=== PATIENT | male | born 1950 | race Caucasian/White ===

== ENCOUNTER 2018-05-09 08:20 | Day surgery (SDC) | payer OTHER ==
--- OUTSIDE RECORDS SUMMARY | 2018-05-09 08:25 | XMS REPORT | Clinical Summary ---
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 Pulse 89 04/30/2018 3:20 PM FUSING MACHINE OPERATOR Temperature - - Respiratory Rate - - Oxygen Saturation - - Inhaled Oxygen Concentration - - Weight 79.4 kg (175 lb) 04/30/2018 3:20 PM FUSING MACHINE OPERATOR Height 175.3 cm (5' 9") 04/30/2018 3:20 PM FUSING MACHINE OPERATOR Body Mass Index 25.84 04/30/2018 3:20 PM FUSING MACHINE OPERATOR Plan of Treatment Health Maintenance Due Date Last Done Comments COLON CANCER SCREENING 07/07/2001 SHINGLES VACCINES (#1) 07/07/2001 65+ PNEUMOCOCCAL VACCINE (1 of 2 - PCV13) 07/07/2016 PNEUMOCOCCAL POLYSACCHARIDE VACCINE AGE 65 AND OVER 07/07/2016 INFLUENZA VACCINE 10/04/2017 Results Not on fileafter 05/08/2017 Insurance Payer Benefit Plan / Group Subscriber ID Type Phone Address MEDICARE MEDICARE PART A AND B xxxxxxxxxxx Medicare [place], [place] Advance Directives Patient has advance care planning documents on file. For more information, please contact:Froilan W[address]ins[address] [place] [address]
[2018-05-09] MEDS ORDERED: CEFAZOLIN/SWI 1gm 1 GM/10 ML SYR ONE (08:45)
[2018-05-09] MEDS ORDERED: Ringers Lactate 1,000 ML IV ONE (08:45)
[2018-05-09 09:00] LABS: Absolute Lymphocytes (CBC) 1.1 K/uL (0.7-4.9); Absolute Monocytes 1.4 K/uL (0.1-1.3); Absolute Neutrophil 7.2 K/uL (1.8-8.0); Basophils % 0.4 % (0-1.3); Eosinophils % 3.5 % (0-4.4); Hematocrit 30.8 % (39.6-49.0); Lymphocytes % 10.9 % (15.3-44.8); MPV 7.2 fL (7.6-11.3); Monocytes % 13.9 % (3.3-12.3); RBC Red Blood Cell Count 3.68 M/uL (4.33-5.43)
[2018-05-09] MEDS ORDERED: NS 0.9% VIAL 10 ML ONE (10:04)
[2018-05-09] MEDS ORDERED: HEPARIN 5000 UNIT/ML 1 ML VIAL ONE (10:05)
[2018-05-09] MEDS ORDERED: LIDOCAINE 1% MPF 30 ML VIAL ONE (10:05)
[2018-05-09] MEDS ORDERED: NA CHLORIDE 0.9% 100 ML IV ONE (10:05)
[2018-05-09] MEDS ORDERED: PROPOFOL 200 MG/20 ML VIAL IV ONE (10:09)
[2018-05-09] MEDS ORDERED: MIDAZOLAM HCL 2 MG/2 ML INJ ONE (10:09)
[2018-05-09] MEDS ORDERED: FENTANYL CITR 100 MCG/2 ML ONE (10:09)
[2018-05-09] MEDS ORDERED: LIDOCAINE 2% MPF 5 ML VIAL ONE (10:09)
--- NOTE | 2018-05-09 11:44 | RAD REPORT ---
EXAM DESCRIPTION: RAD - Chest Single View - 05/09/2018 11:36 am CLINICAL HISTORY: s/p port a cath Chest pain. COMPARISON: Chest Pa And Lat (2 Views) dated 04/27/2018 FINDINGS: Portable technique limits examination quality. Right-sided venous catheter its tip in the SVC. No pneumothorax is present. Elevated right hemidiaphr agm is present, unchanged. The heart is mildly enlarged.
--- NOTE | 2018-05-09 13:59 | DS ---
Date of Discharge: 05/09/2018 Disposition: Home. Condition: Stable. Discharge Instructions: Resume home medications and diet. Activity as tolerated. No heavy lifting. Remove outer dressing in 2 days. Shower. Keep wound clean and dry. Keep Steri-Strips on at all t imes. Follow up in my office in 2 weeks, call for appointment. [facility] up [facility]. Tylenol No . 3 one tablet p.o. q.4 p.r.n. pain. CASSIDY/ANKIT Voice ID: [id number] Report ID: [id number]
--- NOTE | 2018-05-09 13:59 | OP ---
Date of Procedure: 05/09/2018 Surgeon: Stephen Bone MD Preoperative Diagnosis: Colon cancer. Postoperative Diagnosis: Colon cancer. Procedures: Placement of right internal jugular Port-A-Cath and interpretation of intraoperative flu oroscopy. Estimated Blood Loss: Minimal. Specimen: None. Findings: Normal anatomy. Anesthesia: General. Complications: None. Disposition: The patient tolerated the procedure in stable condition and taken to Recovery in good g eneral condition. Description Of Procedure: The patient was brought to the OR and placed in supine position. General anesthesia was begun. The patient was prepped and draped in usual sterile fashion. Lidocaine 1% inf iltrated locally. An 18-gauge needle was used to access the right IJ vein. Guidewire was passed. P osition was confirmed with fluoroscopy. Counterincision of 3 cm in length made, pocket created. Godfrey neling device was used to tunnel the catheter between the 2 wounds and then Seldinger technique was u sed, tip of the catheter placed in the SVC under fluoroscopy. Then, the catheter was cut to appropri ate size, attached to the Port-A-Cath device. Port-A-Cath device was attached to the subcutaneous ti ssue with 3-0 Vicryl, 3-0 chromic used to reapproximate subcutaneous tissue and close the skin. Cath eter flushed with heparin and packed with heparin with good blood flow. Sterile dressing was applied . The patient was awakened and taken to Recovery in good general condition. Chest x-ray has been ordered. If okay, the patient will be disc harged to home. CASSIDY/EMREL Voice ID: [id number] Report ID: [id number]
--- NOTE | 2018-05-09 14:50 | RAD REPORT ---
EXAM DESCRIPTION: RAD - Fluoroscopy <1 Hour - 05/09/2018 2:43 pm CLINICAL HISTORY: Venous catheter insertion. PORT-A-CATH PLACEMENT COMPARISON: No comparisons FINDINGS: Fluoroscopy time 0.4 minutes.
== END 2018-05-09 12:39 | disposition home or self-care (01) ==
LOC: OR 08:20
PROVIDERS: ATTEND Surgery
PROC: 02HV33Z Insertion of Infusion Device into Superior Vena Cava, Percutaneous Approach (ICD-10-PCS; 2018-05-09)
PROC: 0JH63XZ Insertion of Tunneled Vascular Access Device into Chest Subcutaneous Tissue and Fascia, Percutaneous Approach (ICD-10-PCS; principal; 2018-05-09 10:30)
DX: C18.9 Malignant neoplasm of colon, unspecified (principal); I10 Essential (primary) hypertension
CPT/HCPCS: 85025; 36415; 71045; 36561; J2704; J1644 ×2; J2250; J3010; J0690; C1788; 76000

== ENCOUNTER 2019-06-12 | Emergency (ER) | payer OTHER | END 2019-06-13 02:18 | disposition short-term general hospital (02) | PROC: 30233N1 Transfusion of Nonautologous Red Blood Cells into Peripheral Vein, Percutaneous Approach (ICD-10-PCS; principal; 2019-06-13) | CPT/HCPCS: 96365; 93005; 85025; 80048; 36415; 86900; 86850; 85610; 86901; 80076; 85730; 83690; 71260; 74177; 36430 ×2; 96375; 99285; 96366; Q9967; C9113; P9016 ×2; J7030; J7040; J2405 ==

== ENCOUNTER 2019-07-12 09:45 | Day surgery (SDC) | payer OTHER ==
--- OUTSIDE RECORDS SUMMARY | 2019-07-12 10:31 | XMS REPORT | Clinical Summary ---
:1950 Author Organization [facility] Address [address] [place] [address] Care Team Providers Name Role Phone Julian Payne MD Primary Care Provider Allergies Not on File Medications No known medications Active Problems No known active problems Social History Tobacco Use Types Packs/Day Years Used Date Never Assessed Sex Assigned at Date Recorded Not on file Job Start Date Occupation Industry Not on file Not on file Not on file Travel History Travel Start Travel End No recent travel history available. Last Filed Vital Signs Not on file Plan of Treatment Health Maintenance Due Date Last Done Comments COLONOSCOPY SCREENING 07/07/2001 SHINGLES VACCINES (#1) 07/07/2001 65+ PNEUMOCOCCAL VACCINE (1 of 2 - PCV13) 07/07/2016 INFLUENZA VACCINE 10/05/2019 Results Not on fileafter 07/11/2018 Insurance Payer Benefit Plan / Subscriber ID Effective Dates Phone Addre ss Type Group MEDICARE MEDICARE PART A xxxxxxxxxxx 2018-Present [place], [place] Medicare AND B Advance Directives For more information, please contact: [phone] Type Date Recorded Patient Disease Education Specialist Explanati on Advance Directives, Living Will and Medical Power of Software Test Developer
--- OUTSIDE RECORDS SUMMARY | 2019-07-12 10:32 | XMS REPORT | Clinical Summary ---
:1950 Author Organization [facility] Address [address] [place] [address] Care Team Providers Name Role Phone Unavailable Primary Care Provider Unavailable Allergies No Known Allergies Medications Medication Sig Dispensed Refills Start Date End Date Status acetaminophen-codeine Take 1 tablet 0 Active (TYLENOL #3) 300-30 mg by mouth every per tablet 4 (four) hours as needed for Pain. spironolactone Take 50 mg by 0 A ctive (ALDACTONE) 50 MG mouth 2 (two) tablet times daily. pantoprazole (PROTONIX) Take 1 tablet 180 tablet 0 06/15/2019 09/13/2019 Active 40 MG tablet (40 mg total) by mouth 2 (two) times daily for 90 days. Active Problems Problem Noted Date Metastatic colon cancer to liver 06/15/2019 Duodenal ulcer 06/13/2019 Encounters Date Type Specialty Care Team Description 06/14/2019 Anesthesia Event Gastroenterology Kim Schmitz CRNA 06/14/2019 Surgery Gastroenterology Negin Nguyen UPPER ENDO MICAH Kulkarni MD 06/14/2019 Travel 06/13/2019 [facility] Cardiology Rubio, Duodenal ulcer (Primary Dx); - Encounter MD Vilma Gastrointestinal hemorrhage associated w ith peptic ulcer; 06/15/2019 Tim Perez In, History of col on cancer; Malnutrition, unspecified type (HCC); Julito, Acute blood los s anemia Marily Petty MD 06/13/2019 Orders Only General Internal Medicine 06/13/2019 Travel 06/12/2019 Telephone Gastroenterology Negin Nguyen GI Americo Kulkarni MD after 07/11/2018 Social History Tobacco Use Types Packs/Day Years Used Date Never Smoker Smokeless Tobacco: Never Used Alcohol Use Drinks/Week oz/Week Comments Yes 2 Cans of beer 1.2 2 months ago Alcohol Habits Answer Date Recorded How often do you have a drink containing alcohol? Never 06/13/2019 How many drinks containing alcohol do you have on a typical Not asked day when you are drinking? How often do you have six or more drinks on one occasion? No t asked Sex Assigned at Date Recorded Not on file Job Start Date Occupation Industry Not on file Not on file Not on file Travel History Travel Start Travel End No recent travel history available. Last Filed Vital Signs Vital Sign Reading Time Taken Blood Pressure 115/59 06/15/2019 7:24 PM CDT Pulse 71 06/15/2019 7:24 PM CDT Temperature 36.7 C (98.1 F) 06/15/2019 7:24 PM CDT Respiratory Rate 18 06/15/2019 7:24 PM CDT Oxygen Saturation 98% 06/15/2019 7:24 PM CDT Inhaled Oxygen Concentration - - Weight 63.9 kg (140 lb 14.4 oz) 06/14/2019 7:3 6 AM CDT Height 177.8 cm (5' 10") 06/13/2019 3:30 AM CDT Body Mass Index 20.22 06/14/2019 7:36 AM CDT Plan of Treatment Not on file Procedures Procedure Name Priority Date/Time Associated Diagnosis Comme nts REPORT OF PROCEDURE 06/20/2019 8:20 - ENDOSCOPY SCAN AM CDT RHYTHM STRIP - SCAN 06/20/2019 8:20 AM CDT TRANSFUSION SERVICE 06/17/2019 5:50 REPORT - SCAN PM CDT PREPARE Routine 06/16/2019 11:54 Results for this LEUKO-REDUCED RBC PM CDT procedure are in the results section. TRANSFUSION SERVICE 06/16/2019 5:50 REPORT - SCAN PM CDT HEMOGLOBIN AND Timed 06/15/2019 4:04 Results f or this HEMATOCRIT PM CDT procedure are i n the results section. BASIC METABOLIC Routine 06/15/2019 4:04 Results for this PANEL (7) PM CDT procedure are i n the results section. TRANSFUSE Routine 06/15/2019 3:59 LEUKO-REDUCED RED PM CDT BLOOD CELLS POCT-GLUCOSE METER Routine 06/15/2019 12:40 Resul ts for this PM CDT procedure are i n the results section. (CELLAVISION MANUAL Routine 06/15/2019 4:31 Resu lts for this DIFF) AM CDT procedure are i n the results section. CBC W/PLT COUNT & Routine 06/15/2019 4:31 Result s for this AUTO DIFFERENTIAL AM CDT procedure are in the results section. BASIC METABOLIC Routine 06/15/2019 4:31 Results for this PANEL (7) AM CDT procedure are i n the results section. MAGNESIUM Routine 06/15/2019 4:31 Results for this AM CDT procedure are i n the results section. CBC W/PLT COUNT & Routine 06/15/2019 4:31 Result s for this AUTO DIFFERENTIAL AM CDT procedure are in the results section. POCT-GLUCOSE METER Routine 06/15/2019 2:03 Resul ts for this AM CDT procedure are i n the results section. TRANSFUSION SERVICE 06/14/2019 5:50 REPORT - SCAN PM CDT POCT-GLUCOSE METER Routine 06/14/2019 5:24 Resul ts for this PM CDT procedure are i n the results section. BASIC METABOLIC Routine 06/14/2019 4:38 Results for this PANEL (7) PM CDT procedure are i n the results section. OSMOLALITY, URINE Routine 06/14/2019 12:45 Result s for this PM CDT procedure are i n the results section. SODIUM, RANDOM URINE Routine 06/14/2019 12:45 Res ults for this PM CDT procedure are i n the results section. POCT-GLUCOSE METER Routine 06/14/2019 12:41 Resul ts for this PM CDT procedure are i n the results section. OSMOLALITY, SERUM Routine 06/14/2019 11:56 Result s for this AM CDT procedure are i n the results section. REPORT OF PROCEDURE 06/14/2019 11:01 - ENDOSCOPY URL AM CDT UPPER ENDOSCOPY 06/14/2019 9:30 Gastrointestinal AM CDT hemorrhage, unspecified gastrointestinal hemorrhage type POCT-GLUCOSE METER Routine 06/14/2019 6:17 Resul ts for this AM CDT procedure are i n the results section. (CELLAVISION MANUAL Routine 06/14/2019 4:37 Resu lts for this DIFF) AM CDT procedure are i n the results section. CBC W/PLT COUNT & Routine 06/14/2019 4:37 Result s for this AUTO DIFFERENTIAL AM CDT procedure are in the results section. PROTHROMBIN TIME/INR Routine 06/14/2019 4:37 Res ults for this AM CDT procedure are i n the results section. MAGNESIUM Routine 06/14/2019 4:37 Results for this AM CDT procedure are i n the results section. HEPATIC FUNCTION Routine 06/14/2019 4:37 Results for this PANEL AM CDT procedure are i n the results section. CBC W/PLT COUNT & Routine 06/14/2019 4:37 Result s for this AUTO DIFFERENTIAL AM CDT procedure are in the results section. BASIC METABOLIC Routine 06/14/2019 4:37 Results for this PANEL (7) AM CDT procedure are i n the results section. POCT-GLUCOSE METER Routine 06/13/2019 11:25 Resul ts for this PM CDT procedure are i n the results section. XR CHEST 1 VIEW Routine 06/13/2019 2:43 Results for this PORTABLE/BEDSIDE PM CDT procedure a re in the results section. ABORH, MANUAL STAT 06/13/2019 11:45 Results fo r this AM CDT procedure are i n the results section. BASIC METABOLIC Timed 06/13/2019 11:45 Results for this PANEL (7) AM CDT procedure are i n the results section. CBC (HEMOGRAM ONLY) Timed 06/13/2019 11:45 Resu lts for this AM CDT procedure are i n the results section. ECG 12-LEAD Routine 06/13/2019 10:57 AM CDT Procedure Note - Interface, External Ris In - 06/13/2019 10:59 AM CDT Ventricular Rate 95 BPM Atrial Rate 95 BPM P-R Interval 152 ms QRS Duration 84 ms Q-T Interval 340 ms QTC Calculation(Bazett) 427 ms P [place] 49 degrees R [place] 39 degrees T [place] 63 degrees Normal sinus rhythm Septal infarct , age undeter mined Abnormal ECG No previous ECGs available ECG 12-LEAD Routine 06/13/2019 10:57 AM CDT Resu lts for this procedure are i n the results section . US DOPPLER Routine 06/13/2019 10:25 AM CDT Resu lts for this procedure are i n the results section . US ABDOMEN LIMITED Routine 06/13/2019 10:25 AM CDT Results for this procedure are i n the results section . URINALYSIS WITH MICROSCOPIC Routine 06/13/2019 9:01 AM CDT Results for this IF INDICATED procedure are i n the results section . BLOOD CULTURE Routine 06/13/2019 8:47 AM CDT Res ults for this procedure are i n the results section . BLOOD CULTURE Routine 06/13/2019 8:47 AM CDT Res ults for this procedure are i n the results section . (MANUAL DIFFERENTIAL) Routine 06/13/2019 6:04 AM CDT Results for this procedure are i n the results section . CBC W/PLT COUNT & AUTO Routine 06/13/2019 6:04 AM CDT Results for this DIFFERENTIAL procedure are i n the results section . TYPE AND SCREEN, AUTOMATED Routine 06/13/2019 6:04 AM CDT Results for this procedure are i n the results section . BASIC METABOLIC PANEL (7) Add-On 06/13/2019 6:04 AM CDT Results for this procedure are i n the results section . CBC W/PLT COUNT & AUTO Routine 06/13/2019 6:04 AM CDT Results for this DIFFERENTIAL procedure are i n the results section . HEPATIC FUNCTION PANEL Routine 06/13/2019 6:04 AM CDT Results for this procedure are i n the results section . POCT-GLUCOSE METER Routine 06/13/2019 6:00 AM CDT Results for this procedure are i n the results section . POCT-GLUCOSE METER Routine 06/13/2019 4:38 AM CDT Results for this procedure are i n the results section . after 07/11/2018 Results EKG-SCANNED (06/20/2019 8:20 AM CDT) Narrative Performed At This result has an attachment that is no t available. RHYTHM STRIP - SCAN (06/20/2019 8:20 AM CDT) Narrative Performed At This result has an attachment that is no t available. TRANSFUSION SERVICE REPORT - SCAN (06/17/2019 5:50 PM CDT)Only the most recent of3 resultswithin the time period is included. Narrative Performed At This result has an attachment that is no t available. Prepare Leuko-Red RBC (06/16/2019 11:54 PM CDT) CROSSMATCH COMPATIBLE [place] Unit ABO O Pos [place] UNIT NUMBER [id number] [place] Status TX_TIMEINCHART [facility] Blood Bank Product RED BLOOD CELLS [place] PRODUCT CODE [id number] [place] Specimen Other Performing Organization Address City/State/Zipcode Phone Number [place] Hemoglobin and hematocrit (06/15/2019 4:04 PM CDT) Hemoglobin 8.7 (L) 13.7 - 17.5 GM/DL [facility] Hematocrit 25.9 (L) 40.1 - 51.0 % [facility] Specimen Blood Narrative Performed At Tax Services Intern ID - [id number] [facility] Performing Organization Address City/[facility]/Zipcode Phone Number [facility] [address] [place] [address] CENTER Basic metabolic panel (06/15/2019 4:04 PM CDT)Only the most recent of6 results within the time period is included. Sodium 132 (L) 136 - 145 meq/L [facility] Potassium 4.4 3.5 - 5.1 meq/L [facility] Chloride 107 98 - 107 meq/L [facility] CO2 21 (L) 22 - 29 meq/L [facility] BUN 34 (H) 7 - 21 mg/dL [facility] Creatinine 0.82 0.57 - 1.25 mg/dL [facility] Glucose 117 (H) 70 - 105 mg/dL [facility] Calcium 8.5 8.4 - 10.2 mg/dL [facility] EGFR 94Comment: ESTIMATED GFR IS mL/min/1.73 sq m [facility] NOT ACCURATE CREATININE DE DICAL CENTER CLEARANCE IN PREDICTING GLOMERULAR FILTRATION RATE. ESTIMATED GFR IS NOT APPLICABLE FOR DIALYSIS PATIENTS. Specimen Blood Narrative Performed At Tax Services Intern ID - DB [facility] Performing Organization Address City/[facility]/Zipcode Phone Number [facility] [address] [place] [address] CENTER Transfuse Leuko-Red RBC (06/15/2019 3:59 PM CDT)Only the most recent of2 resultswithin the time period is included.POC-Glucose meter (06/15/2019 12:40 PM CDT)Only the most recent of8 resultswithin the time period is included. POC-Glucose Meter 106Comment: : TESTED AT 70 - 110 mg/dL [facility] [address] [facility] [place], [address]: [employer] Intern/Neon Sign Erector ID = [id number] for [place] Specimen Blood Performing Organization Address City/State/Zipcode Phone Number [facility] [address] [place], [place] [phone] CENTER Manual Differential (06/15/2019 4:31 AM CDT)Only the most recent of2 results within the time period is included. % Neutros 91Comment: This is an % [facility] appended report. These [facility] results have been appended to a previously final verified report. % Lymphs 2Comment: This is an % [facility] appended report. These [facility] results have been appended to a previously final verified report. % Monos 7Comment: This is an % [facility] appended report. These [facility] results have been appended to a previously final verified report. # Neutros 14.01 (H)Comment: This is 1.78 - 5.38 K/ul [facility] an appended report. [facility] These results have been appended to a previously final verified report. # Lymphs 0.31 (L)Comment: This is 1.32 - 3.57 K/ul [facility] an appended report. [facility] These results have been appended to a previously final verified report. # Monos 1.08 (H)Comment: This is 0.30 - 0.82 K/uL [facility] an appended report. [facility] These results have been appended to a previously final verified report. Total Counted 100Comment: This is an [facility] appended report. These [facility] results have been appended to a previously final verified report. RBC Morphology Normal [facility] MEDICAL [facility] ER WBC Morphology Normal [facility] ER Platelet Morphology Normal [facility] ER Polychromasia 1+ fewComment: This is an [facility] appended report. These [facility] results have been appended to a previously final verified report. Anisocytosis 2+ moderateComment: This [facility] is an appended report. [facility] These results have been appended to a previously final verified report. Macrocytes 2+ moderateComment: This [facility] is an appended report. [facility] These results have been appended to a previously final verified report. Artifact PresentComment: This is [facility] an appended report. [facility] These results have been appended to a previously final verified report. Platelet Conc AdequateComment: This is [facility] an appended report. [facility] These results have been appended to a previously final verified report. Specimen Blood Narrative Performed At [employer] Intern ID - Enid Overholt [facility] User comments: Slide comments: Performing Organization Address City/State/Zipcode Phone Number [facility] [address] [place] [address] CENTER CBC with platelet count + automated diff (06/15/2019 4:31 AM CDT)Only the most recent of3 resultswithin the time period is included. WBC 15.4 (H) 3.5 - 10.5 K/L [facility] RBC 2.17 (L) 4.63 - 6.08 M/L [facility] Hemoglobin 6.7 (L) 13.7 - 17.5 GM/DL [facility] Hematocrit 20.6 (L) 40.1 - 51.0 % [facility] MCV 94.9 (H) 79.0 - 92.2 fL [facility] MCH 30.9 25.7 - 32.2 pg [facility] MCHC 32.5 32.3 - 36.5 GM/DL [facility] RDW 16.9 (H) 11.6 - 14.4 % [facility] Platelets 188 150 - 450 K/CU MM [facility] MPV 9.4 9.4 - 12.4 fL [facility] nRBC 0 0 - 0 /100 WBC [facility] Specimen Blood Performing Organization Address [facility] Phone Number [address] [address] CENTER Magnesium (06/15/2019 4:31 AM CDT)Only the most recent of2 resultswithin the time period is included. Magnesium 2.2 1.6 - 2.6 mg/dL [facility] Specimen Blood Narrative Performed At Tax Services Intern ID - ELENO Parks [facility] Performing Organization Address [facility] Phone Number [address] [address] CENTER Sodium, random urine (06/14/2019 12:45 PM CDT) Sodium Urine <20 meq/L [facility] Specimen Urine Narrative Performed At Reference Range: No Normals [facility] Tax Services Intern ID - [email or web address] Performing Organization Address [facility] Phone Number [address] [address] CENTER Osmolality, urine (06/14/2019 12:45 PM CDT) Osmolality, Ur 660 40-1,400 mOsm/kg [facility] Specimen Urine Performing Organization Address [facility] Phone Number [address] [address] CENTER Osmolality, serum (06/14/2019 11:56 AM CDT) Osmolality Serum 300 (H) 275 - 295 mOsm/kg [facility] Specimen Blood Performing Organization Address City/[facility]/Zipcode Phone Number [facility] [address] [place] [address] [place] REPORT OF PROCEDURE - ENDOSCOPY URL (06/14/2019 11:01 AM CDT) Narrative Performed At This result has an attachment that is no t available. Prothrombin time/INR (06/14/2019 4:37 AM CDT) Protime 18.4 (H) 11.9 - 14.2 seconds [facility] INR 1.6 <=5.9 [facility] Specimen Blood Narrative Performed At Effective 08/01/2018: PT Reference Range [facility] Change New: 11.9-14.2Previous: 11.7-14.7 RECOMMENDED COUMADIN/WARFARIN INR THERAPY RANGES STANDARD DOSE: 2.0-3.0Includes: PROPHYLAXIS for venous thrombosis, systemic embolization; TREATMENT for venous thrombosis and/or pulmonary embolus. HIGH RISK: Target INR is 2.5-3.5 for patients wiht mechanical heart valves. Performing Organization Address [facility]/Zipcode Phone Number [facility] [address] [place] [address] [place] Hepatic function panel (06/14/2019 4:37 AM CDT)Only the most recent of2 results within the time period is included. Protein, Total 7.0 6.0 - 8.3 gm/dL [facility] Albumin 2.1 (L) 3.5 - 5.0 g/dL [facility] Total Bilirubin 1.8 (H) 0.2 - 1.2 mg/dL [facility] Bilirubin, Direct 1.2 (H) 0.1 - 0.5 mg/dL [facility] Alkaline Phosphatase 331 (H) 40 - 150 U/L [facility] AST 258 (H) 5 - 34 U/L [facility] ALT 159 (H) 6 - 55 U/L [facility] Specimen Blood Narrative Performed At Tax Services Intern ID - CLARITZA Bobo [facility] Performing Organization Address City/[facility]/Zipcode Phone Number [address] [address] CENTER XR chest 1 view portable / bedside (06/13/2019 2:43 PM CDT) Specimen Narrative Performed At FINAL REPORT GE RIS Chest, one view History: Leukocytosis Comparison: none Findings: Clear lungs.Normal size heart.No pleural effusion or pneumothorax.A right-sided Port-A-Ca th terminates in the superior vena cava. Impression: No acute findings in the chest Signed: Uriel Barrera MD Report Verified Date/Time:06/13/2019 15:33:29 Reading Location: [facility] C013X Ortho Con sult Reading Room Procedure Note Interface, External Ris In - 06/13/2019 3:35 PM CDT FINAL REPORT Chest, one view History: Leukocytosis Comparison: none Findings: Clear lungs. Normal size heart. No ple ural effusion or pneumothorax. A right-sided Port-A-Cath terminates in the superior vena cava. Impression: No acute findings in the chest Signed: Uriel Barrera MD Report Verified Date/Time: 06/13/2019 1 5:33:29 Reading Location: [facility] C013X Ortho Con sult Reading Room Performing Organization Address City/[facility]/Zipcode Phone Number GE RIS ABORH, manual (06/13/2019 11:45 AM CDT) ABO Grouping O [facility] Rh Factor POS [facility] Specimen Blood Performing Organization Address City/[facility]/Zipcode Phone Number [address] [address] CBC (Hemogram only) (06/13/2019 11:45 AM CDT) WBC 24.0 (H) 3.5 - 10.5 K/L [facility] RBC 2.72 (L) 4.63 - 6.08 M/L [facility] Hemoglobin 8.3 (L) 13.7 - 17.5 GM/DL [facility] Hematocrit 25.9 (L) 40.1 - 51.0 % [facility] MCV 95.2 (H) 79.0 - 92.2 fL [facility] MCH 30.5 25.7 - 32.2 pg [facility] MCHC 32.0 (L) 32.3 - 36.5 GM/DL [facility] RDW 18.1 (H) 11.6 - 14.4 % [facility] Platelets 247 150 - 450 K/CU MM [facility] MPV 9.3 (L) 9.4 - 12.4 fL [facility] nRBC 0 0 - 0 /100 WBC [facility] Specimen Blood Performing Organization Address City/State/Zipcode Phone Number [facility] [address] [place] [address] CENTER ECG 12 lead (06/13/2019 10:57 AM CDT) Specimen Narrative Performed At Ventricular Rate 95 BPM GE MUSE Atrial Rate 95 BPM P-R Interval 152 ms QRS Duration 84 ms Q-T Interval 340 ms QTC Calculation(Bazett) 427 ms P [place] 49 degrees R [place] 39 degrees T [place] 63 degrees Normal sinus rhythm probable inferoposterior infarct Abnormal ECG No previous ECGs available Confirmed by MD Wynne Roberto ([id number]) on 2019 1:54:37 PM Procedure Note Interface, External Ris In - 06/13/2019 1:54 PM CDT Ventricular Rate 95 BPM Atrial Rate 95 BPM P-R Interval 152 ms QRS Duration 84 ms Q-T Interval 340 ms QTC Calculation(Bazett) 427 ms P [place] 49 degrees R [place] 39 degrees T [place] 63 degrees Normal sinus rhythm probable inferoposterior infarct Abnormal ECG No previous ECGs available Confirmed by MD Sherrell, Rory ([id number]) on 06/13/2019 1:54:37 PM Performing Organization Address City/State/Zipcode Phone Number [employer] US abdomen limited (06/13/2019 10:25 AM CDT) Specimen Narrative Performed At FINAL REPORT [employer] TECHNIQUE: Grayscale ultrasound of the a bdomen with color Doppler and spectral Doppler ultrasound of the sera l/hepatic vasculature. INDICATION: transaminitis. COMPARISON: None. FINDINGS: LIVER: The liver has a nodular contour a nd is near completely replaced by masses. No focal liver lesio ns. HEPATIC VASCULATURE: Portal veins are pa tent with normal waveform and directionality. Flow velocity in the yue n portal vein is within normal limits. The hepatic veins and con fluence are patent. The main portal vein measures 1 cm in diameter. The hepatic arterial resistive indices a re elevated at 0.8. The proper hepatic arterial acceleration valerie e is 0.06 seconds. BILIARY: Gallbladder: No gallstones or sludge. No gallbladder wall thickening, pericholecystic fluid, or distention. Ne gative sonographic Boo sign. Common bile duct measures 0.4 cm, within normal limits. No intrahepatic biliary ductal dilatation. PANCREAS: Incompletely visualized due to overlying bowel gas. The partially visualized pancreatic body is normal. SPLEEN: The spleen is enlarged at 13.1 c m in length. PERITONEUM: No free fluid. RIGHT KIDNEY: Normal in size. No hydrone phrosis. No sonographically evident solid mass lesion. MIDLINE VASCULATURE: The visualized infe rior vena cava is patent. The maximum visualized aortic diameter is 2. 4 cm.Splenic artery and vein are patent. IMPRESSION: 1.The liver is near completely replaced by masses. Consider further evaluation with a MRI of the abdomen wit h and without intravenous contrast, liver mass protocol, [facility]. 2.The elevated hepatic arterial resistiv e indices are likely due to the parenchymal liver disease. 3.Mild splenomegaly. Signed: Barrett Escalona MD Report Verified Date/Time:06/13/2019 10:39:55 Reading Location: [facility] C013Y CT Body R [facility] Room Procedure Note Interface, External Ris In - 06/13/2019 10:42 AM CDT FINAL REPORT TECHNIQUE: Grayscale ultrasound of the a bdomen with color Doppler and spectral Doppler ultrasound of the sera l/hepatic vasculature. INDICATION: transaminitis. COMPARISON: None. FINDINGS: LIVER: The liver has a nodular contour a nd is near completely replaced by masses. No focal liver lesio ns. HEPATIC VASCULATURE: Portal veins are pa tent with normal waveform and directionality. Flow velocity in the yue n portal vein is within normal limits. The hepatic veins and con fluence are patent. The main portal vein measures 1 cm in diameter. The hepatic arterial resistive indices a re elevated at 0.8. The proper hepatic arterial acceleration valerie e is 0.06 seconds. BILIARY: Gallbladder: No gallstones or sludge. No gallbladder wall thickening, pericholecystic fluid, or distention. Ne gative sonographic Boo sign. Common bile duct measures 0.4 cm, within normal limits. No intrahepatic biliary ductal dilatation. PANCREAS: Incompletely visualized due to overlying bowel gas. The partially visualized pancreatic body is normal. SPLEEN: The spleen is enlarged at 13.1 c m in length. PERITONEUM: No free fluid. RIGHT KIDNEY: Normal in size. No hydrone phrosis. No sonographically evident solid mass lesion. MIDLINE VASCULATURE: The visualized infe rior vena cava is patent. The maximum visualized aortic diameter is 2. 4 cm. Splenic artery and vein are patent. IMPRESSION: 1.The liver is near completely replaced by masses. Consider further evaluation with a MRI of the abdomen wit h and without intravenous contrast, liver mass protocol, for furth er evaluation. 2.The elevated hepatic arterial resistiv e indices are likely due to the parenchymal liver disease. 3.Mild splenomegaly. Signed: Barrett Escalona MD Report Verified Date/Time: 06/13/2019 1 0:39:55 Reading Location: [facility] B1 C013Y CT Body R eading Room Performing Organization Address City/State/Zipcode Phone Number [facility] US doppler (06/13/2019 10:25 AM CDT) Specimen Narrative Performed At FINAL REPORT [facility] TECHNIQUE: Grayscale ultrasound of the a bdomen with color Doppler and spectral Doppler ultrasound of the sera l/hepatic vasculature. INDICATION: transaminitis. COMPARISON: None. FINDINGS: LIVER: The liver has a nodular contour a nd is near completely replaced by masses. No focal liver lesio ns. HEPATIC VASCULATURE: Portal veins are pa tent with normal waveform and directionality. Flow velocity in the yue n portal vein is within normal limits. The hepatic veins and con fluence are patent. The main portal vein measures 1 cm in diameter. The hepatic arterial resistive indices a re elevated at 0.8. The proper hepatic arterial acceleration valerie e is 0.06 seconds. BILIARY: Gallbladder: No gallstones or sludge. No gallbladder wall thickening, pericholecystic fluid, or distention. Ne gative sonographic Boo sign. Common bile duct measures 0.4 cm, within normal limits. No intrahepatic biliary ductal dilatation. PANCREAS: Incompletely visualized due to overlying bowel gas. The partially visualized pancreatic body is normal. SPLEEN: The spleen is enlarged at 13.1 c m in length. PERITONEUM: No free fluid. RIGHT KIDNEY: Normal in size. No hydrone phrosis. No sonographically evident solid mass lesion. MIDLINE VASCULATURE: The visualized infe rior vena cava is patent. The maximum visualized aortic diameter is 2. 4 cm.Splenic artery and vein are patent. IMPRESSION: 1.The liver is near completely replaced by masses. Consider further evaluation with a MRI of the abdomen wit h and without intravenous contrast, liver mass protocol, for [facility] evaluation. 2.The elevated hepatic arterial resistiv e indices are likely due to the parenchymal liver disease. 3.Mild splenomegaly. Signed: Barrett Escalona MD Report Verified Date/Time:06/13/2019 10:39:55 Reading Location: [facility] C013Y CT Body R [facility] Procedure Note Interface, External Ris In - 06/13/2019 10:42 AM CDT FINAL REPORT TECHNIQUE: Grayscale ultrasound of the a bdomen with color Doppler and spectral Doppler ultrasound of the sera l/hepatic vasculature. INDICATION: transaminitis. COMPARISON: None. FINDINGS: LIVER: The liver has a nodular contour a nd is near completely replaced by masses. No focal liver lesio ns. HEPATIC VASCULATURE: Portal veins are pa tent with normal waveform and directionality. Flow velocity in the yue n portal vein is within normal limits. The hepatic veins and con fluence are patent. The main portal vein measures 1 cm in diameter. The hepatic arterial resistive indices a re elevated at 0.8. The proper hepatic arterial acceleration valerie e is 0.06 seconds. BILIARY: Gallbladder: No gallstones or sludge. No gallbladder wall thickening, pericholecystic fluid, or distention. Ne gative sonographic Boo sign. Common bile duct measures 0.4 cm, within normal limits. No intrahepatic biliary ductal dilatation. PANCREAS: Incompletely visualized due to overlying bowel gas. The partially visualized pancreatic body is normal. SPLEEN: The spleen is enlarged at 13.1 c m in length. PERITONEUM: No free fluid. RIGHT KIDNEY: Normal in size. No hydrone phrosis. No sonographically evident solid mass lesion. MIDLINE VASCULATURE: The visualized infe rior vena cava is patent. The maximum visualized aortic diameter is 2. 4 cm. Splenic artery and vein are patent. IMPRESSION: 1.The liver is near completely replaced by masses. Consider further evaluation with a MRI of the abdomen wit h and without intravenous contrast, liver mass protocol, for [facility] evaluation. 2.The elevated hepatic arterial resistiv e indices are likely due to the parenchymal liver disease. 3.Mild splenomegaly. Signed: Barrett Escalona MD Report Verified Date/Time: 06/13/2019 1 0:39:55 Reading Location: [facility] C013Y CT Body R [facility] Room Performing Organization Address City/State/Zipcode Phone Number [facility] Urinalysis with Microscopic If Indicated (06/13/2019 9:01 AM CDT) Color, UA Yellow [facility] Clarity, UA Clear [facility] Specific [place], UA 1.024 1.001 - 1.[address] [facility] pH, UA 5.0 5.0 - 8.[address] [facility] Protein[facility] UA Negative Negative [facility] Glucose, UA Negative Negative [facility] Ketones, UA Negative Negative [facility] Bilirubin, UA Negative Negative [facility] Blood, UA Negative Negative [facility] Nitrite, UA Negative Negative [facility] Leukocytes, UA Negative Negative [facility] Urobilinogen, UA 2.0 (H) 0.2 - 1.0 mg/dL [facility] Specimen Source [facility] Specimen Urine Narrative Performed At [employer] Intern ID - [[email or web address]] [facility] [employer] Intern ID - tech [employer] ID - tech Performing Organization Address [facility] Phone Number [address] [address] [place] Blood Culture - Routine (Left Venipuncture) (06/13/2019 8:47 AM CDT)Only the most recent of2 resultswithin the time period is included. Result No growth in 5 days [facility] Specimen Blood Performing Organization Address City/[facility]/Zipcode Phone Number [address] [address] [place] Manual Differential (06/13/2019 6:04 AM CDT) % Neutros (manual) 76 % [facility] % Lymphs (manual) 9 % [facility] % Monos (manual) 12 % [facility] % Eos (manual) 1 % [facility] % Baso (manual) 0 % [facility] % Metamyelo (manual) 1 (H) 0 - 0 % [facility] % Atypical Lymphs 1 (H) 0 - 0 % [facility] # Neutros (manual) 15.73 (H) 1.80 - 8.00 K/L [facility] # Lymphs (manual) 1.86 1.48 - 4.50 K/L [facility] # Monos (manual) 2.48 (H) 0.00 - 1.30 K/L [facility] # Eos (manual) 0.21 0.00 - 0.50 K/L [facility] # Baso (manual) 0.00 0.00 - 0.20 K/L [facility] # Metamyelo (manual) 0.21 (H) 0.00 - 0.00 K/L [facility] # Atypical Lymphs 0.21 (H) 0.00 - 0.00 K/L [facility] Total Counted 100 [facility] WBC Morphology Normal [facility] Platelet Morphology Normal [facility] Anisocytosis 1+ few [facility] Polychromasia 1+ few [facility] Specimen Blood Performing Organization Address City/[facility]/Zipcode Phone Number [facility] [address] [place] [address] CENTER Type and screen, automated (06/13/2019 6:04 AM CDT) ABO/RH AUTOMATED (BEAKER) O POSITIVE [facility] Ab Scrn NEGATIVE [facility] Specimen Blood Performing Organization Address City/State/Zipcode Phone Number [facility] [address] [place] [address] after 07/11/2018 Insurance Payer Benefit Plan / Group Subscriber ID Type Phone A ddress MEDICARE MEDICARE A B xxxxxxxxxxx Medicare Advance Directives For more information, please contact:[facility] [place], [place] [phone] Code Status Date Activated Date Inactivated Comments Full Code 06/13/2019 4:19 AM 06/15/2019 10:37 PM This code status was determined by: Patient
--- OUTSIDE RECORDS SUMMARY | 2019-07-12 10:33 | XMS REPORT ---
:1950 Author Organization [facility] t Address [address] [place] [address] Care Team Providers Name Role Phone KATHIA Unavailable Unavailable Problems This patient has no known problems. Allergies, Adverse Reactions, Alerts This patient has no known allergies or adverse reactions. Medications This patient has no known medications. Results Test Description Test Time Test Comments Text Results Atomic Results Result Comments BLOOD CULTURE 2019-06-18 10:00:00 Test Item Value Reference Range Comments CULTURE (BEAKER) (test code = 1095) No growth in 5 days BLOOD [id number] 10:00:00 Test Item Value Reference Range Comments CULTURE (BEAKER) (test code = 1095) No growth in 5 days BASIC METABOLIC [id number] 16:25:00 Test Item Value Reference Range Comments SODIUM (BEAKER) (test 132 meq/L 136-145 code = 381) POTASSIUM (BEAKER) (test 4.4 meq/L 3.5-5.1 code = 379) CHLORIDE (BEAKER) (test 107 meq/L 98-107 code = 382) CO2 (BEAKER) (test code = 21 meq/L 22-29 355) BLOOD UREA NITROGEN 34 mg/dL 7-21 (BEAKER) (test code = 354) CREATININE (BEAKER) (test 0.82 mg/dL 0.57-1.25 code = 358) GLUCOSE RANDOM (BEAKER) 117 mg/dL 70-105 (test code = 652) CALCIUM (BEAKER) (test 8.5 mg/dL 8.4-10.2 code = 697) EGFR (BEAKER) (test code 94 mL/min/1.73 sq m EST IMATED GFR IS NOT = 1092) ACCURATE CREA TININE CLEARANCE IN PRE DICTING GLOMERULAR FILTR ATION RATE. ESTIMATED GFR IS NOT APPLICABLE F OR DIALYSIS PATIENT S. Material Mover ID - DBHEMOGLOBIN AND [id number] 16:11:00 Test Item Value Reference Range Comments HEMOGLOBIN (BEAKER) (test code = 410) 8.7 GM/DL 13.7-17.5 HEMATOCRIT (BEAKER) (test code = 411) 25.9 % 40.1-51.0 Material Mover ID - 6000POCT-GLUCOSE [id number] 12:51:00 Test Item Value Reference Range Comments POC-GLUCOSE METER (BEAKER) 106 mg/dL 70-110 : [facility] AT [facility] [address] (test code = 1538) [facility], [address]: Material Mover/Technic chin ID = [id number] for JOSSELYN NEIL (CELLAVISION MANUAL DIFF)2019-06-15 07:17:00 Test Item Value Reference Range Comments TOTAL COUNTED (BEAKER) (test code 100 This is an appended = 1351) report. These r esults have been append ed to a previously final verified report. RBC MORPHOLOGY (BEAKER) (test Normal code = 762) WBC MORPHOLOGY (BEAKER) (test Normal code = 487) PLT MORPHOLOGY (BEAKER) (test Normal code = 486) NEUTROPHILS - REL 91 % This is an samantha ended (CELLAVISION)(BEAKER) (test code report. These results = 2816) have been append ed to a previously final verified report. LYMPHOCYTES - REL 2 % This is an samantha ended (CELLAVISION)(BEAKER) (test code report. These results = 2817) have been append ed to a previously final verified report. MONOCYTES - REL 7 % This is an appen ded (CELLAVISION)(BEAKER) (test code report. These results = 2818) have been append ed to a previously final verified report. NEUTROPHILS - ABS 14.01 K/ul 1.78-5.38 This is an samantha ended (CELLAVISION)(BEAKER) (test code report. These results = 2830) have been append ed to a previously final verified report. LYMPHOCYTES - ABS 0.31 K/ul 1.32-3.57 This is an samantha ended (CELLAVISION)(BEAKER) (test code report. These results = 2831) have been append ed to a previously final verified report. MONOCYTES - ABS 1.08 K/uL 0.30-0.82 This is an appen ded (CELLAVISION)(BEAKER) (test code report. These results = 2832) have been append ed to a previously final verified report. POLYCHROMATOPHILLIC RBCS(BEAKER) 1+ few This is an appended (test code = 478) report. These results have been append ed to a previously final verified report. ANISOCYTOSIS (BEAKER) (test code 2+ moderate This is an appended = 961) report. These r esults have been append ed to a previously final verified report. MACROCYTES (BEAKER) (test code = 2+ moderate This is an appended 964) report. These r esults have been append ed to a previously final verified report. ARTIFACT (CELLAVISION)(BEAKER) Present T his is an appended (test code = 3432) report. Thes e results have been append ed to a previously final verified report. PLATELET CONCENTRATION Adequate This is a n appended (CELLAVISION)(BEAKER) (test code report. These results = 3438) have been append ed to a previously final verified report. Material Mover ID - Enid OverholtUser comments: Slide comments:[id number] 05:36:00 Test Item Value Reference Range Comments MAGNESIUM (BEAKER) (test code = 627) 2.2 mg/dL 1.6-2.6 Material Mover ID - ELENO MBASIC METABOLIC [id number] 05:36:00 Test Item Value Reference Range Comments SODIUM (BEAKER) (test 133 meq/L 136-145 code = 381) POTASSIUM (BEAKER) (test 4.7 meq/L 3.5-5.1 code = 379) CHLORIDE (BEAKER) (test 110 meq/L 98-107 code = 382) CO2 (BEAKER) (test code = 19 meq/L 22-29 355) BLOOD UREA NITROGEN 38 mg/dL 7-21 (BEAKER) (test code = 354) CREATININE (BEAKER) (test 0.80 mg/dL 0.57-1.25 code = 358) GLUCOSE RANDOM (BEAKER) 119 mg/dL 70-105 (test code = 652) CALCIUM (BEAKER) (test 8.3 mg/dL 8.4-10.2 code = 697) EGFR (BEAKER) (test code 96 mL/min/1.73 sq m EST IMATED GFR IS NOT = 1092) ACCURATE CREA TININE CLEARANCE IN PRE DICTING GLOMERULAR FILTR ATION RATE. ESTIMATED GFR IS NOT APPLICABLE F OR DIALYSIS PATIENT S. Material Mover ID - ELENO MCBC W/PLT COUNT & AUTO [id number] 05:15:00 Test Item Value Reference Range Comments WHITE BLOOD CELL COUNT (BEAKER) (test code = 15.4 K/ L 3.5 -10.5 775) RED BLOOD CELL COUNT (BEAKER) (test code = 761) 2.17 M/ L 4.63-6.08 HEMOGLOBIN (BEAKER) (test code = 410) 6.7 GM/DL 13.7-17.5 HEMATOCRIT (BEAKER) (test code = 411) 20.6 % 40.1-51.0 MEAN CORPUSCULAR VOLUME (BEAKER) (test code = 94.9 fL 79 .0-92.2 753) MEAN CORPUSCULAR HEMOGLOBIN (BEAKER) (test code 30.9 pg 25.7-32.2 = 751) MEAN CORPUSCULAR HEMOGLOBIN CONC (BEAKER) (test 32.5 GM/DL 32.3-36.5 code = 752) RED CELL DISTRIBUTION WIDTH (BEAKER) (test code 16.9 % 11.6-14.4 = 412) PLATELET COUNT (BEAKER) (test code = 756) 188 K/CU MM 150-45 0 MEAN PLATELET VOLUME (BEAKER) (test code = 754) 9.4 fL 9.4-12.4 NUCLEATED RED BLOOD CELLS (BEAKER) (test code = 0 /100 WBC 0-0 413) POCT-GLUCOSE [id number] 02:16:00 Test Item Value Reference Range Comments POC-GLUCOSE METER (BEAKER) 123 mg/dL 70-110 : [facility] AT [address] (test code = 1538) [facility], [address]: Material Mover/Technic chin ID = [id number] for ADAL LAINEZ POCT-GLUCOSE [id number] 17:36:00 Test Item Value Reference Range Comments POC-GLUCOSE METER (BEAKER) 182 mg/dL 70-110 : [facility] AT [place] [id number] [facility] (test code = 1538) [facility], [address]: Material Mover/Technic chin ID = [id number] for Bertin COOK BASIC METABOLIC [id number] 17:04:00 Test Item Value Reference Range Comments SODIUM (BEAKER) (test 132 meq/L 136-145 code = 381) POTASSIUM (BEAKER) (test 5.4 meq/L 3.5-5.1 code = 379) CHLORIDE (BEAKER) (test 106 meq/L 98-107 code = 382) CO2 (BEAKER) (test code = 18 meq/L 22-29 355) BLOOD UREA NITROGEN 51 mg/dL 7-21 (BEAKER) (test code = 354) CREATININE (BEAKER) (test 1.11 mg/dL 0.57-1.25 code = 358) GLUCOSE RANDOM (BEAKER) 180 mg/dL 70-105 (test code = 652) CALCIUM (BEAKER) (test 8.4 mg/dL 8.4-10.2 code = 697) EGFR (BEAKER) (test code 66 mL/min/1.73 sq m EST IMATED GFR IS NOT = 1092) ACCURATE CREA TININE CLEARANCE IN PRE DICTING GLOMERULAR FILTR ATION RATE. ESTIMATED GFR IS NOT APPLICABLE F OR DIALYSIS PATIENT S. Material Mover ID - DALTONOCT-GLUCOSE [id number] 17:01:00 Test Item Value Reference Range Comments POC-GLUCOSE METER (BEAKER) 130 mg/dL 70-110 : [facility] AT [facility] [address] [facility] (test code = 1538) [facility], [address]: Material Mover/Technic chin ID = [id number] for Bertin COOK OSMOLALITY, [id number] 14:44:00 Test Item Value Reference Range Comments OSMOLALITY URINE (BEAKER) (test code = 614) 660 mOsm/kg 40-1 ,400 SODIUM, RANDOM [id number] 13:56:00 Test Item Value Reference Range Comments SODIUM URINE (BEAKER) (test code = 243) < meq/L Reference Range: No NormalsOperator ID - DANYELLEGOSMOLALITY, [id number] 13:53:00 Test Item Value Reference Range Comments OSMOLALITY, SERUM (BEAKER) (test code = 615) 300 mOsm/kg 275 -295 CBC W/PLT COUNT & AUTO [id number] 09:25:00 Test Item Value Reference Range Comments WHITE BLOOD CELL COUNT (BEAKER) (test code = 22.4 K/ L 3.5 -10.5 775) RED BLOOD CELL COUNT (BEAKER) (test code = 761) 2.50 M/ L 4.63-6.08 HEMOGLOBIN (BEAKER) (test code = 410) 7.8 GM/DL 13.7-17.5 HEMATOCRIT (BEAKER) (test code = 411) 23.4 % 40.1-51.0 MEAN CORPUSCULAR VOLUME (BEAKER) (test code = 93.6 fL 79 .0-92.2 753) MEAN CORPUSCULAR HEMOGLOBIN (BEAKER) (test code 31.2 pg 25.7-32.2 = 751) MEAN CORPUSCULAR HEMOGLOBIN CONC (BEAKER) (test 33.3 GM/DL 32.3-36.5 code = 752) RED CELL DISTRIBUTION WIDTH (BEAKER) (test code 17.3 % 11.6-14.4 = 412) PLATELET COUNT (BEAKER) (test code = 756) 197 K/CU MM 150-45 0 MEAN PLATELET VOLUME (BEAKER) (test code = 754) 9.4 fL 9.4-12.4 NUCLEATED RED BLOOD CELLS (BEAKER) (test code = 0 /100 WBC 0-0 413) (CELLAVISION MANUAL DIFF)2019-06-14 09:25:00 Test Item Value Reference Range Comments NEUTROPHILS - REL (CELLAVISION)(BEAKER) (test 82 % code = 2816) LYMPHOCYTES - REL (CELLAVISION)(BEAKER) (test 1 % code = 2817) MONOCYTES - REL (CELLAVISION)(BEAKER) (test code 14 % = 2818) BANDS - REL (CELLAVISION)(BEAKER) (test code = 3 % 0 -10 3366) NEUTROPHILS - ABS (CELLAVISION)(BEAKER) (test 18.37 K/ul 1. 78-5.38 code = 2830) LYMPHOCYTES - ABS (CELLAVISION)(BEAKER) (test 0.22 K/ul 1. 32-3.57 code = 2831) MONOCYTES - ABS (CELLAVISION)(BEAKER) (test code 3.14 K/uL 0.30-0.82 = 2832) BANDS - ABS (CELLAVISION)(BEAKER) (test code = 0.67 K/uL 0 .00-0.80 2840) TOTAL COUNTED (BEAKER) (test code = 1351) 100 WBC MORPHOLOGY (BEAKER) (test code = 487) Normal GIANT PLATELETS (BEAKER) (test code = 313) Present POLYCHROMATOPHILLIC RBCS(BEAKER) (test code = 2+ moderate 478) HYPOCHROMIA (BEAKER) (test code = 963) 2+ moderate ANISOCYTOSIS (BEAKER) (test code = 961) 1+ few MACROCYTES (BEAKER) (test code = 964) 1+ few POIKILOCYTES (BEAKER) (test code = 966) 2+ moderate ROULEAUX (BEAKER) (test code = 763) 2+ moderate SPHEROCYTES (BEAKER) (test code = 768) 1+ few OVALOCYTES (BEAKER) (test code = 477) 1+ few TEAR DROP CELLS (BEAKER) (test code = 481) 1+ few ARTIFACT (CELLAVISION)(BEAKER) (test code = Present 3432) PLATELET CONCENTRATION (CELLAVISION)(BEAKER) Adequate (test code = 3438) Material Mover ID - Courtney Marshall comments: Slide comments: WBC: SEGMENTED WITH TOXIC GRANULATIONS PRESENTPOCT-GLUCOSE [id number] 06:28:00 Test Item Value Reference Range Comments POC-GLUCOSE METER (BEAKER) 99 mg/dL 70-110 : [facility] 1538[facility], [address]: Material Mover/Technic chin ID = [id number] for NATACHA GONZALEZ PROTHROMBIN [id number] 05:34:00 Test Item Value Reference Range Comments PROTIME (BEAKER) (test code = 759) 18.4 seconds 11.9-14.2 INR (BEAKER) (test code = 370) 1.6 <=5.9 Effective 08/01/2018: PT Reference Range ChangeNew: 11.9-14.2 Previous: 11.7- 14.7RECOMMENDED COUMADIN/WARFARIN INR THERAPY RANGESSTANDARD DOSE: 2.0-3.0 Includes: PROPHYLAXIS for venous thrombosis, systemic embolization; TREATMENT for venous thrombosis and/or pulmonary embolus.HIGH RISK: Target INR is2.5-3.5 for patients wiht mechanical heart valves.[id number] 05:24:00 Test Item Value Reference Range Comments MAGNESIUM (BEAKER) (test code = 627) 1.9 mg/dL 1.6-2.6 Material Mover ID Juancarlos JERRY WBASIC METABOLIC [id number] 05:24:00 Test Item Value Reference Range Comments SODIUM (BEAKER) (test 131 meq/L 136-145 code = 381) POTASSIUM (BEAKER) (test 5.5 meq/L 3.5-5.1 code = 379) CHLORIDE (BEAKER) (test 106 meq/L 98-107 code = 382) CO2 (BEAKER) (test code = 16 meq/L 22-29 355) BLOOD UREA NITROGEN 58 mg/dL 7-21 (BEAKER) (test code = 354) CREATININE (BEAKER) (test 1.04 mg/dL 0.57-1.25 code = 358) GLUCOSE RANDOM (BEAKER) 94 mg/dL 70-105 (test code = 652) CALCIUM (BEAKER) (test 8.4 mg/dL 8.4-10.2 code = 697) EGFR (BEAKER) (test code 71 mL/min/1.73 sq m EST IMATED GFR IS NOT = 1092) ACCURATE CREA TININE CLEARANCE IN PRE DICTING GLOMERULAR FILTR ATION RATE. ESTIMATED GFR IS NOT APPLICABLE F OR DIALYSIS PATIENT S. Material Mover ID Juancarlos JERRY WHEPATIC FUNCTION [id number] 05:24:00 Test Item Value Reference Range Comments TOTAL PROTEIN (BEAKER) (test code = 770) 7.0 gm/dL 6.0-8.3 ALBUMIN (BEAKER) (test code = 1145) 2.1 g/dL 3.5-5.0 BILIRUBIN TOTAL (BEAKER) (test code = 377) 1.8 mg/dL 0.2-1 .2 BILIRUBIN DIRECT (BEAKER) (test code = 706) 1.2 mg/dL 0.1- 0.5 ALKALINE PHOSPHATASE (BEAKER) (test code = 346) 331 U/L 40-150 AST (SGOT) (BEAKER) (test code = 353) 258 U/L 5-34 ALT (SGPT) (BEAKER) (test code = 347) 159 U/L 6-55 Material Mover ID - CLARITZA WPOCT-GLUCOSE [id number] 23:37:00 Test Item Value Reference Range Comments POC-GLUCOSE METER (BEAKER) 112 mg/dL 70-110 : [facility] AT [facility] [address] (test code = 1538) [place], [address]: Material Mover/Technic chin ID = [id number] for NATACHA GONZALEZ, CHEST, 1 VIEW, NON [id number] 15:33:00Reason for exam:- >leucocytosisShould this be performed at the bedside?->YesFINAL REPORT Chest, one view History: Leukocytosis Comparison: none Findings:Clear lungs. Normal size heart. No pleural effusion or pneumothorax. A right-sided Port-A-Cath terminates in the superior vena cava. Impression:No acute findings in the chest Signed: Uriel Barrera MDReport Verified Date/Time: 06/13/2019 15:33:29 Reading Location: [facility] B1 C013X Ortho Consult Reading Room BASIC METABOLIC [id number] 12:45:00 Test Item Value Reference Range Comments SODIUM (BEAKER) (test 136 meq/L 136-145 code = 381) POTASSIUM (BEAKER) (test 5.8 meq/L 3.5-5.1 code = 379) CHLORIDE (BEAKER) (test 110 meq/L 98-107 code = 382) CO2 (BEAKER) (test code = 17 meq/L 22-29 355) BLOOD UREA NITROGEN 75 mg/dL 7-21 (BEAKER) (test code = 354) CREATININE (BEAKER) (test 1.06 mg/dL 0.57-1.25 code = 358) GLUCOSE RANDOM (BEAKER) 124 mg/dL 70-105 (test code = 652) CALCIUM (BEAKER) (test 8.9 mg/dL 8.4-10.2 code = 697) EGFR (BEAKER) (test code 70 mL/min/1.73 sq m EST IMATED GFR IS NOT = 1092) ACCURATE CREA TININE CLEARANCE IN PRE DICTING GLOMERULAR FILTR ATION RATE. ESTIMATED GFR IS NOT APPLICABLE F OR DIALYSIS PATIENT S. Material Mover ID - COURTNEY FCBC (HEMOGRAM ONLY)2019-06-13 12:29:00 Test Item Value Reference Range Comments WHITE BLOOD CELL COUNT (BEAKER) (test code = 24.0 K/ L 3.5 -10.5 775) RED BLOOD CELL COUNT (BEAKER) (test code = 761) 2.72 M/ L 4.63-6.08 HEMOGLOBIN (BEAKER) (test code = 410) 8.3 GM/DL 13.7-17.5 HEMATOCRIT (BEAKER) (test code = 411) 25.9 % 40.1-51.0 MEAN CORPUSCULAR VOLUME (BEAKER) (test code = 95.2 fL 79 .0-92.2 753) MEAN CORPUSCULAR HEMOGLOBIN (BEAKER) (test code 30.5 pg 25.7-32.2 = 751) MEAN CORPUSCULAR HEMOGLOBIN CONC (BEAKER) (test 32.0 GM/DL 32.3-36.5 code = 752) RED CELL DISTRIBUTION WIDTH (BEAKER) (test code 18.1 % 11.6-14.4 = 412) PLATELET COUNT (BEAKER) (test code = 756) 247 K/CU MM 150-45 0 MEAN PLATELET VOLUME (BEAKER) (test code = 754) 9.3 fL 9.4-12.4 NUCLEATED RED BLOOD CELLS (BEAKER) (test code = 0 /100 WBC 0-0 413) U/S, ABDOMINAL, [id number] 10:39:00Please include doppler Abdomen limited area? Add comment if clarification is needed.->Right upperquadrant Reason for exam:->transaminitisFINAL REPORT TECHNIQUE: Grayscale ultrasound of the abdomen with color Doppler and spectral Doppler ultrasound of the portal/hepatic vasculature. INDICATION: transaminitis. COMPARISON: None. FINDINGS: LIVER: The liver has a nodular contour and is near completely replaced by masses. No focal liver lesions. HEPATIC VASCULATURE: Portal veins are patent with normal waveform and directionality. Flow velocity in the main portal vein is within normal limits. The hepatic veins and confluence are patent. The main portal vein measures 1 cm in diameter. The hepatic arterial resistive indices are elevated at 0.8. The proper hepatic arterial acceleration time is 0.06 seconds. BILIARY:Gallbladder: No gallstones or sludge. No gallbladder wall thickening, pericholecystic fluid, or distention. Negative sonographic Boo sign.Common bile duct measures 0.4 cm, within normal limits. No intrahepatic biliary ductal dilatation. PANCREAS: Incompletely visualized due to overlying bowel gas. Thepartially visualized pancreatic body is normal. SPLEEN: The spleen is enlarged at 13.1 cm in length.PERITONEUM: No free fluid. RIGHT KIDNEY: Normal in size. No hydronephrosis. No sonographically evident solid mass lesion. MIDLINE VASCULATURE: The visualized inferior vena cava is patent. The maximum vi sualized aortic diameter is 2.4 cm. Splenic artery and vein are patent. IMPRESSION: 1.The liver isnear completely replaced by masses. Consider further evaluation with a MRI of the abdomen with and without intravenous contrast, liver mass protocol, for further evaluation. 2.The elevated hepatic arterial resistive indices are likely due to the parenchymal liver disease. 3.Mild splenomegaly. Signed: Barrett Escalona MDRort Verified Date/Time: 06/13/2019 10:39:55 Reading Location: [facility] B1 C013Y CT Body Reading Room U/S, DUPLEX, DOPPLER 2019-06-13 10:39:00Please include doppler Abdomen limited area? Add comment if clarification is needed.->Right upperquadrant Reason for exam:->transaminitisFINAL REPORT TECHNIQUE: Grayscale ultrasound of the abdomen with color Doppler and spectral Doppler ultrasound of the portal/hepatic vasculature. INDICATION: transaminitis. COMPARISON: None. FINDINGS: LIVER: The liver has a nodular contour and is near completely replaced by masses. No focal liver lesions. HEPATIC VASCULATURE: Portal veins are patent with normal waveform and directionality. Flow velocity in the main portal vein is within normal limits. The hepatic veins and confluence are patent. The main portal vein measures 1 cm in diameter. The hepatic arterial resistive indices are elevated at 0.8. The proper hepatic arterial acceleration time is 0.06 seconds. BILIARY:Gallbladder: No gallstones or sludge. No gallbladder wall thickening, pericholecystic fluid, or distention. Negative sonographic Boo sign.Common bile duct measures 0.4 cm, within normal limits. No intrahepatic biliary ductal dilatation. PANCREAS: Incompletely visualized due to overlying bowel gas. Thepartially visualized pancreatic body is normal. SPLEEN: The spleen is enlarged at 13.1 cm in length.PERITONEUM: No free fluid. RIGHT KIDNEY: Normal in size. No hydronephrosis. No sonographically evident solid mass lesion. MIDLINE VASCULATURE: The visualized inferior vena cava is patent. The maximum vi sualized aortic diameter is 2.4 cm. Splenic artery and vein are patent. IMPRESSION: 1.The liver isnear completely replaced by masses. Consider further evaluation with a MRI of the abdomen with and without intravenous contrast, liver mass protocol, for further evaluation. 2.The elevated hepatic arterial resistive indices are likely due to the parenchymal liver disease. 3.Mild splenomegaly. Signed: Barrett Escalona MDReport Verified Date/Time: 06/13/2019 10:39:55 Reading Location: [address] Body Reading Room URINALYSIS WITH MICROSCOPIC IF [id number] 09:43:00 Test Item Value Reference Range Comments COLOR (BEAKER) (test code = 470) Yellow CLARITY (BEAKER) (test code = 469) Clear SPECIFIC GRAVITY UA (BEAKER) (test code = 468) 1.024 1 .001-1.035 PH UA (BEAKER) (test code = 467) 5.0 5.0-8.0 PROTEIN UA (BEAKER) (test code = 464) Negative Negative GLUCOSE UA (BEAKER) (test code = 365) Negative Negative KETONES UA (BEAKER) (test code = 371) Negative Negative BILIRUBIN UA (BEAKER) (test code = 462) Negative Negative BLOOD UA (BEAKER) (test code = 461) Negative Negative NITRITE UA (BEAKER) (test code = 465) Negative Negative LEUKOCYTE ESTERASE UA (BEAKER) (test code = 466) Negative Negative UROBILINOGEN UA (BEAKER) (test code = 463) 2.0 mg/dL 0.2-1 .0 SOURCE(BEAKER) (test code = 2795) Material Mover ID - [auto]Material Mover ID - techOperator ID - techCBC W/PLT COUNT & AUTO [id number] 08:51:00 Test Item Value Reference Range Comments WHITE BLOOD CELL COUNT (BEAKER) (test code = 20.7 K/ L 3.5 -10.5 775) RED BLOOD CELL COUNT (BEAKER) (test code = 761) 2.66 M/ L 4.63-6.08 HEMOGLOBIN (BEAKER) (test code = 410) 8.3 GM/DL 13.7-17.5 HEMATOCRIT (BEAKER) (test code = 411) 25.0 % 40.1-51.0 MEAN CORPUSCULAR VOLUME (BEAKER) (test code = 94.0 fL 79 .0-92.2 753) MEAN CORPUSCULAR HEMOGLOBIN (BEAKER) (test code 31.2 pg 25.7-32.2 = 751) MEAN CORPUSCULAR HEMOGLOBIN CONC (BEAKER) (test 33.2 GM/DL 32.3-36.5 code = 752) RED CELL DISTRIBUTION WIDTH (BEAKER) (test code 17.2 % 11.6-14.4 = 412) PLATELET COUNT (BEAKER) (test code = 756) 217 K/CU MM 150-45 0 MEAN PLATELET VOLUME (BEAKER) (test code = 754) 9.2 fL 9.4-12.4 NUCLEATED RED BLOOD CELLS (BEAKER) (test code = 0 /100 WBC 0-0 413) (MANUAL DIFFERENTIAL)2019-06-13 08:51:00 Test Item Value Reference Range Comments NEUTROPHILS - REL (DIFF) (BEAKER) (test code = 76 % 1359) LYMPHOCYTES - REL (DIFF) (BEAKER) (test code = 9 % 1360) MONOCYTES - REL (DIFF) (BEAKER) (test code = 12 % 1361) EOSINOPHILS - REL (DIFF) (BEAKER) (test code = 1 % 1362) BASOPHILS - REL (DIFF) (BEAKER) (test code = 0 % 1363) METAMYELOCYTES-REL (DIFF) (BEAKER) (test code = 1 % 0-0 258) ATYPICAL LYMPHOCYTE - REL (DIFF) (BEAKER) (test 1 % 0-0 code = 260) NEUTROPHILS - ABS (DIFF) (BEAKER) (test code = 15.73 K/ L 1 .80-8.00 1365) LYMPHOCYTES - ABS (DIFF) (BEAKER) (test code = 1.86 K/ L 1 .48-4.50 1366) MONOCYTES - ABS (DIFF) (BEAKER) (test code = 2.48 K/ L 0.0 0-1.30 1367) EOSINOPHILS - ABS (DIFF) (BEAKER) (test code = 0.21 K/ L 0 .00-0.50 1368) BASOPHILS - ABS (DIFF) (BEAKER) (test code = 0.00 K/ L 0.0 0-0.20 1369) METAMYELOCTYES - ABS (DIFF) (BEAKER) (test code = 0.21 K/ L 0.00-0.00 261) ATYPICAL LYMPHOCYTES - ABS (DIFF) (BEAKER) (test 0.21 K/ L 0.00-0.00 code = 263) TOTAL COUNTED (BEAKER) (test code = 1351) 100 WBC MORPHOLOGY (BEAKER) (test code = 487) Normal PLT MORPHOLOGY (BEAKER) (test code = 486) Normal ANISOCYTOSIS (BEAKER) (test code = 961) 1+ few POLYCHROMATOPHILLIC RBCS(BEAKER) (test code = 1+ few 478) BASIC METABOLIC [id number] 08:01:00 Test Item Value Reference Range Comments SODIUM (BEAKER) (test 135 meq/L 136-145 code = 381) POTASSIUM (BEAKER) (test 5.9 meq/L 3.5-5.1 code = 379) CHLORIDE (BEAKER) (test 109 meq/L 98-107 code = 382) CO2 (BEAKER) (test code = 18 meq/L 22-29 355) BLOOD UREA NITROGEN 75 mg/dL 7-21 (BEAKER) (test code = 354) CREATININE (BEAKER) (test 0.99 mg/dL 0.57-1.25 code = 358) GLUCOSE RANDOM (BEAKER) 123 mg/dL 70-105 (test code = 652) CALCIUM (BEAKER) (test 8.8 mg/dL 8.4-10.2 code = 697) EGFR (BEAKER) (test code 75 mL/min/1.73 sq m EST IMATED GFR IS NOT = 1092) ACCURATE CREA TININE CLEARANCE IN PRE DICTING GLOMERULAR FILTR ATION RATE. ESTIMATED GFR IS NOT APPLICABLE F OR DIALYSIS PATIENT S. Material Mover ID - [facility] [id number] 06:40:00 Test Item Value Reference Range Comments TOTAL PROTEIN (BEAKER) (test code = 770) 7.0 gm/dL 6.0-8.3 ALBUMIN (BEAKER) (test code = 1145) 2.1 g/dL 3.5-5.0 BILIRUBIN TOTAL (BEAKER) (test code = 377) 2.6 mg/dL 0.2-1 .2 BILIRUBIN DIRECT (BEAKER) (test code = 706) 1.7 mg/dL 0.1- 0.5 ALKALINE PHOSPHATASE (BEAKER) (test code = 346) 369 U/L 40-150 AST (SGOT) (BEAKER) (test code = 353) 396 U/L 5-34 ALT (SGPT) (BEAKER) (test code = 347) 182 U/L 6-55 Material Mover ID - [facility]IA LPOCT-GLUCOSE [id number] 06:11:00 Test Item Value Reference Range Comments POC-GLUCOSE METER (BEAKER) 129 mg/dL 70-110 : ZOE BROOKS AT [address] (test code = 1538) [facility], [address]: Material Mover/Technic chin ID = [id number] for GUILLERMINA SHARMA POCT-GLUCOSE [id number] 04:51:00 Test Item Value Reference Range Comments POC-GLUCOSE METER (BEAKER) 125 mg/dL 70-110 : ZOE BROOKS AT [address] (test code = 1538) [facility], [address]: Material Mover/Technic chin ID = [id number] for GUILLERMINA SHARMA
--- NOTE | 2019-07-12 13:47 | RAD REPORT ---
EXAM DESCRIPTION: US - Paracentesis Proc Guidance - 07/12/2019 11:56 am CLINICAL HISTORY: Ascites COMPARISON: Liver Only dated 12/03/2018 FINDINGS: Informed consent was obtained and time-out was performed. Patient's abdomen was prepped and draped in the usual sterile fashion. 1% lidocaine was used for loca l anesthetic purposes. A small skin incision was made. A paracentesis catheter was guided into the peroneal cavity under son ographic guidance. A small amount of fluid was sent for requested lab studies. A large volume paracentesis was performed . The patient tolerated the procedure well. IMPRESSION: Successful ultrasound-guided paracentesis.
[2019-07-12 14:25] VITALS: BMI 21.1
[2019-07-12 14:29] VITALS: TEMP 97.6
[2019-07-12 14:30] VITALS: O2SAT 97
[2019-07-12 14:31] VITALS: BP 101/53
== END 2019-07-12 13:45 | disposition home or self-care (01) ==
LOC: DS 09:45
PROVIDERS: ATTEND Internal Medicine Hematology & Oncology
DX: R18.8 Other ascites (principal); C19 Malignant neoplasm of rectosigmoid junction; C78.7 Secondary malignant neoplasm of liver and intrahepatic bile duct
CPT/HCPCS: 49083; 87070; 88108; 88305

== ENCOUNTER 2019-08-16 11:46 | Inpatient (IN) | payer OTHER ==
--- OUTSIDE RECORDS SUMMARY | 2019-08-16 11:49 | XMS REPORT | Clinical Summary ---
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
--- OUTSIDE RECORDS SUMMARY | 2019-08-16 11:51 | XMS REPORT | Clinical Summary ---
:1950 Author Organization [facility] Address [address] [place] [address] Care Team Providers Name Role Phone Unavailable [...] ENDO MICAH Kulkarni MD 06/14/2019 Travel 06/13/2019 [facility] Cardiology Rubio, Duodenal ulcer (Primary Dx); - Encounter MD Vilma Gastrointestinal hemorrhage associated w ith peptic ulcer; 06/15/2019 Tim Perez In, History of col on cancer; Malnutrition, unspecified type (HCC); Julito, Acute blood los s anemia Marily Petty MD 06/13/2019 Orders Only General Internal Medicine 06/13/2019 Travel 06/12/2019 Telephone Gastroenterology Negin Nguyen GI Americo Kulkarni MD after 08/15/2018 Social History Tobacco Use Types Packs/Day Years [...] 340 ms QTC Calculation(Bazett) 427 ms P [place] 49 degrees R [place] 39 degrees T [place] 63 degrees Normal sinus rhythm Septal infarct [...] i n the results section . after 08/15/2018 Results EKG-SCANNED (06/20/2019 8:20 AM CDT) Narrative [...] ABO O Pos [place] UNIT NUMBER [id number] [place] Status [place]_TIMEINCHART [place] Blood Bank Product RED BLOOD CELLS [place] PRODUCT CODE [id number] [place] Specimen Other Performing Organization Address City/State/Zipcode Phone Number [place] Hemoglobin and hematocrit (06/15/2019 4:04 PM CDT) Hemoglobin 8.7 (L) 13.7 - 17.5 GM/DL [facility] Hematocrit 25.9 (L) 40.1 - 51.0 % [facility] Specimen Blood Narrative Performed At [employer] Salesperson ID - [id number] [facility] Performing Organization Address City/[facility]/Zipcode Phone Number [facility] [address] [place] [address] CENTER Basic metabolic panel (06/15/2019 4:04 PM CDT)Only the most recent of6 results within the time period is included. Sodium 132 (L) 136 - 145 meq/L [facility] Potassium 4.4 3.5 - 5.1 meq/L [facility] Chloride 107 98 - 107 meq/L [facility] CO2 21 (L) 22 - 29 meq/L [facility] BUN 34 (H) 7 - 21 mg/dL [facility] Creatinine 0.82 0.57 - 1.25 mg/dL [facility] Glucose 117 (H) 70 - 105 mg/dL [facility] Calcium 8.5 8.4 - 10.2 mg/dL [facility] EGFR 94Comment: ESTIMATED GFR IS mL/min/1.73 sq m [facility] NOT ACCURATE CREATININE [facility] CLEARANCE IN PREDICTING GLOMERULAR FILTRATION RATE. ESTIMATED GFR IS NOT APPLICABLE FOR DIALYSIS PATIENTS. Specimen Blood Narrative Performed At [employer] Salesperson ID - DB [facility] Performing Organization Address City/[facility]/Zipcode Phone Number [facility] [address] [place] [address] CENTER Transfuse Leuko-Red RBC (06/15/2019 3:59 PM CDT)Only the most recent of2 resultswithin the time period is included.POC-Glucose meter (06/15/2019 12:40 PM CDT)Only the most recent of8 resultswithin the time period is included. POC-Glucose Meter 106Comment: : TESTED AT 70 - 110 mg/dL [facility] [address] [place], [address]: [employer] Salesperson/Mill Hand Plate Mill ID = [id number] for [place] Specimen Blood Performing Organization Address City/State/Zipcode Phone Number [facility] [address] [place], [place] [id number] CENTER Manual Differential (06/15/2019 4:31 AM CDT)Only the most recent of2 results within the time period is included. % Neutros 91Comment: This is an % [facility] appended report. These [facility] results have been appended to a previously final verified report. % Lymphs 2Comment: This is an % [facility] appended report. These [facility] results have been appended to a previously final verified report. % Monos 7Comment: This is an % [facility] appended report. These [facility] results have been appended to a previously final verified report. # Neutros 14.01 (H)Comment: This is 1.78 - 5.38 K/ul [facility] an appended report. [facility] These results have been appended to a previously final verified report. # Lymphs 0.31 (L)Comment: This is 1.32 - 3.57 K/ul [facility] an appended report. [facility] These results have been appended to a previously final verified report. # Monos 1.08 (H)Comment: This is 0.30 - 0.82 K/uL [facility] an appended report. [facility] These results have been appended to a previously final verified report. Total Counted 100Comment: This is an [facility] appended report. These [facility] results have been appended to a previously final verified report. RBC Morphology Normal [facility] ER WBC Morph[facility] Normal [facility] ER Platelet Morphology Normal [facility] ER Polychromasia 1+ fewComment: This is an [facility] appended report. These [facility] results have been appended to a previously final verified report. Anisocytosis 2+ moderateComment: This [facility] is an appended report. [facility] These results have been appended to a previously final verified report. Macrocytes 2+ moderateComment: This [facility] is an appended report. [facility] These results have been appended to a previously final verified report. Artifact PresentComment: This is [facility] an appended report. [facility] These results have been appended to a previously final verified report. Platelet Conc AdequateComment: This is [facility] an appended report. [facility] These results have been appended to a previously final verified report. Specimen Blood Narrative Performed At [employer] Salesperson ID - Enid Overholt [facility] User comments: Slide comments: Performing Organization Address City/State/Zipcode Phone Number [facility] [address] [place] [address] CENTER CBC with platelet count + automated diff (06/15/2019 4:31 AM CDT)Only the most recent of3 resultswithin the time period is included. WBC 15.4 (H) 3.5 - 10.5 K/L [facility] RBC 2.17 (L) 4.63 - 6.08 M/L [facility] Hemoglobin 6.7 (L) 13.7 - 17.5 GM/DL [facility] Hematocrit 20.6 (L) 40.1 - 51.0 % [facility] MCV 94.9 (H) 79.0 - 92.2 fL [facility] MCH 30.9 25.7 - 32.2 pg [facility] MCHC 32.5 32.3 - 36.5 GM/DL [facility] RDW 16.9 (H) 11.6 - 14.4 % [facility] Platelets 188 150 - 450 K/CU MM [facility] MPV 9.4 9.4 - 12.4 fL [facility] nRBC 0 0 - 0 /100 WBC [facility] Specimen Blood Performing Organization Address [facility] Centercode Phone Number [address] [address] CENTER Magnesium (06/15/2019 4:31 AM CDT)Only the most recent of2 resultswithin the time period is included. Magnesium 2.2 1.6 - 2.6 mg/dL [facility] Specimen Blood Narrative Performed At [employer] Salesperson ID - ELENO Parks [facility] Performing Organization Address [facility] Centercome Phone Number [address] [address] CENTER Sodium, random urine (06/14/2019 12:45 PM CDT) Sodium Urine <20 meq/L [facility] Specimen Urine Narrative Performed At Reference Range: No Normals [facility] [employer] Salesperson ID - [email or web address] Performing Organization Address [facility] Centercode Phone Number [address] [address] CENTER Osmolality, urine (06/14/2019 12:45 PM CDT) Osmolality, Ur 660 40-1,400 mOsm/kg [facility] Specimen Urine Performing Organization Address [facility] Centercode Phone Number [address] [address] CENTER Osmolality, serum (06/14/2019 11:56 AM CDT) Osmolality Serum 300 (H) 275 - 295 mOsm/kg [facility] Specimen Blood Performing Organization Address City/[facility]/Zipcode Phone Number [facility] [address] [place] [address] ROSE REPORT OF PROCEDURE - ENDOSCOPY URL (06/14/2019 11:01 AM CDT) Narrative Performed At This result has an attachment that is no t available. Prothrombin time/INR (06/14/2019 4:37 AM CDT) Protime 18.4 (H) 11.9 - 14.2 seconds [facility] INR 1.6 <=5.9 [facility] Specimen Blood Narrative Performed At Effective 08/01/2018: PT Reference Range [facility] Change New: 11.9-14.2Previous: 11.7-14.7 RECOMMENDED COUMADIN/WARFARIN INR THERAPY RANGES STANDARD DOSE: 2.0-3.0Includes: PROPHYLAXIS for venous thrombosis, systemic embolization; TREATMENT for venous thrombosis and/or pulmonary embolus. HIGH RISK: Target INR is 2.5-3.5 for patients wiht mechanical heart valves. Performing Organization Address [facility]/Zipcode Phone Number [facility] [address] [place] [address] [place] Hepatic function panel (06/14/2019 4:37 AM CDT)Only the most recent of2 results within the time period is included. Protein, Total 7.0 6.0 - 8.3 gm/dL [facility] Albumin 2.1 (L) 3.5 - 5.0 g/dL [facility] Total Bilirubin 1.8 (H) 0.2 - 1.2 mg/dL [facility] Bilirubin, Direct 1.2 (H) 0.1 - 0.5 mg/dL [facility] Alkaline Phosphatase 331 (H) 40 - 150 U/L [facility] AST 258 (H) 5 - 34 U/L [facility] ALT 159 (H) 6 - 55 U/L [facility] Specimen Blood Narrative Performed At [employer] Salesperson ID - CLARITZA Bobo [facility] Performing Organization Address City/[facility]/Zipcode Phone Number [address] [address] CENTER XR chest 1 view [...] MD Report Verified Date/Time:06/13/2019 15:33:29 Reading Location: [facility] C013X Ortho Con sult Reading Room Procedure [...] Verified Date/Time: 06/13/2019 1 5:33:29 Reading Location: [facility] C013X Ortho Con sult Reading Room Performing Organization Address City/[facility]/Zipcode Phone Number GE RIS ABORH, manual (06/13/2019 11:45 AM CDT) ABO Grouping O [facility] Rh Factor POS [facility] Specimen Blood Performing Organization Address City/[facility]/Zipcode Phone Number [address] [address] CBC (Hemogram only) (06/13/2019 11:45 AM CDT) WBC 24.0 (H) 3.5 - 10.5 K/L [facility] RBC 2.72 (L) 4.63 - 6.08 M/L [facility] Hemoglobin 8.3 (L) 13.7 - 17.5 GM/DL [facility] Hematocrit 25.9 (L) 40.1 - 51.0 % [facility] MCV 95.2 (H) 79.0 - 92.2 fL [facility] MCH 30.5 25.7 - 32.2 pg [facility] MCHC 32.0 (L) 32.3 - 36.5 GM/DL [facility] RDW 18.1 (H) 11.6 - 14.4 % [facility] Platelets 247 150 - 450 K/CU MM [facility] MPV 9.3 (L) 9.4 - 12.4 fL [facility] nRBC 0 0 - 0 /100 WBC [facility] Specimen Blood Performing Organization Address City/State/Zipcode Phone Number [facility] [address] [place] [address] CENTER ECG 12 lead (06/13/2019 10:57 AM CDT) Specimen Narrative Performed At Ventricular Rate 95 BPM GE MUSE Atrial Rate 95 BPM P-R Interval 152 ms QRS Duration 84 ms Q-T Interval 340 ms QTC Calculation(Bazett) 427 ms P [place] 49 degrees R [place] 39 degrees T [place] 63 degrees Normal sinus rhythm probable inferoposterior infarct Abnormal ECG No previous ECGs available Confirmed by MD Wynne Roberto ([id number]) on 2019 1:54:37 PM Procedure Note Interface, External Ris In - 06/13/2019 1:54 PM CDT Ventricular Rate 95 BPM Atrial Rate 95 BPM P-R Interval 152 ms QRS Duration 84 ms Q-T Interval 340 ms QTC Calculation(Bazett) 427 ms P [place] 49 degrees R [place] 39 degrees T [place] 63 degrees Normal sinus rhythm probable inferoposterior infarct Abnormal ECG No previous ECGs available Confirmed by MD Sherrell, Rory ([id number]) on 06/13/2019 1:54:37 PM Performing Organization Address City/State/Zipcode Phone Number VYRE Limited US abdomen limited (06/13/2019 10:25 AM CDT) Specimen Narrative Performed At FINAL REPORT [employer] TECHNIQUE: Grayscale ultrasound of the a bdomen [...] without intravenous contrast, liver [facility]. 2.The elevated hepatic arterial resistiv e indices are likely due to the parenchymal liver disease. 3.Mild splenomegaly. Signed: Barrett Escalona MD Report Verified Date/Time:06/13/2019 10:39:55 Reading Location: [facility] C013[facility] CT Body R [facility] Room Procedure Note Interface, External Ris In [...] Verified Date/Time: 06/13/2019 1 0:39:55 Reading Location: [facility] B1 C013Y CT Body R eading Room Performing Organization Address City/State/Zipcode Phone Number [employer] US doppler (06/13/2019 10:25 AM CDT) Specimen Narrative Performed At FINAL REPORT [employer] TECHNIQUE: Grayscale ultrasound of the a bdomen [...] without intravenous contrast, liver mass protocol, for [facility] evaluation. 2.The elevated hepatic arterial resistiv e indices are likely due to the parenchymal liver disease. 3.Mild splenomegaly. Signed: Barrett Escalona MD Report Verified Date/Time:06/13/2019 10:39:55 Reading Location: [facility] C013Y CT Body R [facility] Procedure Note Interface, External Ris In - [...] without intravenous contrast, liver mass protocol, for [facility] evaluation. 2.The elevated hepatic arterial resistiv e indices are likely due to the parenchymal liver disease. 3.Mild splenomegaly. Signed: Barrett Escalona MD Report Verified Date/Time: 06/13/2019 1 0:39:55 Reading Location: [facility] C013Y CT Body R [facility] Room Performing Organization Address City/State/Zipcode Phone Number [employer] Urinalysis with Microscopic If Indicated (06/13/2019 9:01 AM CDT) Color, UA Yellow [facility] Clarity, UA Clear [facility] CENTER Specific [place], UA 1.024 1.001 - 1.[address] [facility] pH, UA 5.0 5.0 - 8.[address] [facility] Protein, UA Negative Negative [facility] Glucose, UA Negative Negative [facility] CENTER Ketones, UA Negative Negative [facility] Bilirubin, UA Negative Negative [facility] Blood, UA Negative Negative [facility] Nitrite, UA Negative Negative [facility] Leukocytes, UA Negative Negative [facility] Urobilinogen, UA 2.0 (H) 0.2 - 1.0 mg/dL [facility] Specimen Source [facility] Specimen Urine Narrative Performed At [employer] Salesperson ID - [auto] [facility] [employer] Salesperson ID - tech [employer] Salesperson ID - tech Performing Organization Address [facility] Centercome Phone Number [address] [address] [place] Blood Culture - Routine (Left Venipuncture) (06/13/2019 8:47 AM CDT)Only the most recent of2 resultswithin the time period is included. Result No growth in 5 days [facility] Specimen Blood Performing Organization Address City/[facility]/Zipcode Phone Number [address] [address] [place] Manual Differential (06/13/2019 6:04 AM CDT) % Neutros (manual) 76 % [facility] % Lymphs (manual) 9 % [facility] % Monos (manual) 12 % [facility] % Eos (manual) 1 % [facility] % Baso (manual) 0 % [facility] % Metamyelo (manual) 1 (H) 0 - 0 % [facility] % Atypical Lymphs 1 (H) 0 - 0 % [facility] # Neutros (manual) 15.73 (H) 1.80 - 8.00 K/L [facility] # Lymphs (manual) 1.86 1.48 - 4.50 K/L [facility] # Monos (manual) 2.48 (H) 0.00 - 1.30 K/L [facility] # Eos (manual) 0.21 0.00 - 0.50 K/L [facility] # Baso (manual) 0.00 0.00 - 0.20 K/L [facility] # Metamyelo (manual) 0.21 (H) 0.00 - 0.00 K/L [facility] # Atypical Lymphs 0.21 (H) 0.00 - 0.00 K/L [facility] Total Counted 100 [facility] WBC Morphology Normal [facility] Platelet Morphology Normal [facility] Anisocytosis 1+ few [facility] Polychromasia 1+ few [facility] Specimen Blood Performing Organization Address City/[facility]/Zipcode Phone Number [facility] [address] [place] [address] CENTER Type and screen, automated (06/13/2019 6:04 AM CDT) ABO/RH AUTOMATED (BEAKER) O POSITIVE [facility] Ab Scrn NEGATIVE [facility] Specimen Blood Performing Organization Address City/State/Zipcode Phone Number [facility] [address] [place] [address] after 08/15/2018 Insurance Payer Benefit Plan / Group Subscriber ID Type Phone A ddress MEDICARE MEDICARE A B xxxxxxxxxxx Medicare Advance Directives For more information, please contact:[facility] [place], [place] [phone] Code Status Date Activated Date Inactivated Comments Full Code 06/13/2019 4:19 AM 06/15/2019 10:37 PM This code status was determined by: Patient
--- OUTSIDE RECORDS SUMMARY | 2019-08-16 11:54 | XMS REPORT | Continuity of Care Document ---
:1950 Author Organization [facility] t Address [address] [place] [address] Care Team Providers Name Role Phone Elmer GONZALES Primary Care Physician RUBIO Attending Clinician Unavailable Rubio GONZALES Attending Clinician Ana GONZALES In Attending Clinician Jessica Vila MD Attending Clinician Mau Schmitz CRNA Attending Clinician Cayla Nguyen MD Attending Clinician JESSICA VILA Admitting Clinician Unavailable Payers Payer Name Policy Policy Number Effective Expiration Source Type Date Date MEDICAREMEDICARE A xxxxxxxxxxx [facility] Problems Condition Condition Condition Status Onset Resolution Last Treating Co mments Source Name Details Category Date Date Treatment Clinician Date Metastatic Metastatic Disease Active C HI [facility] colon colon 06-14 [facility] - cancer to cancer to 00:00: [facility] liver liver 00 Center Duodenal Duodenal Disease Active [facility] - [facility]: Medical 00 Center Allergies, Adverse Reactions, Alerts This patient has no known allergies or adverse reactions. Social History Social Habit Start Date Stop Date Quantity Comments Source History SDOH [facility] - Alcohol Std Drinks Medica l Center History SDOH [facility] St [facility] - Alcohol Binge Medical Elisa ter Sex Assigned At [facility] Alcohol Comment 2019-06-14 2019-06-[address] [facility] - 00[facility]00 [facility]00 Medical Center History SDOH 2019-06-13 2019-06-13 1 [facility] - Alcohol Frequency 00:00:00 00:00:00 Medical Center Smoking Status Start Date Stop Date Source Never smoker [facility] Medications Ordered Filled Start Stop Current Ordering Indication Dosage Frequency Signature Comments Components Source Medication Medication Date Date Medication? Clinician (SIG) Name Name pantoprazol 2020- Yes 40mg Q.5D Take [address] [facility] [address] e 06-14-10 tablet (40 [facility] - (PROTONIX) 00:00: 23:59 mg total) M edical 40 MG 00 :00 by mouth 2 Center tablet (two) times daily for 90 days. acetaminoph Yes 1{tbl} Take [address] en-codeine 06-12 tablet by [facility] - (TYLENOL 04:18: mouth Medical #3) 300-30 55 every 4 Center mg per (four) tablet hours as needed for Pain. spironolact Yes 50mg Q.5D Take [address] [facility] [address] one 06-12 by mouth 2 [facility] - (ALDACTONE) 04:18: (two) Medic al 50 MG 55 times Center tablet daily. Vital Signs Vital Name Observation Time Observation Value Comments Source Systolic blood 2019-06-15 19:24:00 115 mm[Hg] [facility] Diastolic blood 2019-06-15 19:24:00 59 mm[Hg] [facility] Heart rate 2019-06-15 19:24:00 71 /min [facility] Body temperature 2019-06-15 19:24:00 36.72 [facility] Respiratory rate 2019-06-15 19:24:00 18 /min [facility] Oxygen saturation in 2019-06-15 19:24:00 98 /min [facility] Arterial blood by Medical Ce nter Pulse oximetry Body weight Measured 2019-06-14 07:36:00 63.912 kg [facility] BMI 2019-06-14 07:36:00 20.22 kg/m2 [facility] Body height 2019-06-13 03:30:00 177.8 cm [facility] Procedures Procedure Date / Time Performed Performing Clinician [facility] e REPORT OF PROCEDURE - 2019-06-20 08:20:27 Provider, Default [facility] ENDOSCOPY SCAN Scanning [facility] RHYTHM STRIP - SCAN 2019-06-20 08:20:20 Provider, Default [facility] Scanning [facility] TRANSFUSION SERVICE 2019-06-17 17:50:20 Provider, Default [facility] REPORT - SCAN Scanning [facility] PREPARE LEUKO-REDUCED 2019-06-16 23:54:[address] [facility] RBC [facility] TRANSFUSION SERVICE 2019-06-16 17:50:23 Provider, Default [facility] REPORT SCAN Scanning [facility] BASIC METABOLIC PANEL 2019-06-15 16:04:[address] [facility] () [facility] HEMOGLOBIN AND 2019-06-15 16:04:[address] [facility] HEMATOCRIT [facility] TRANSFUSE LEUKO-REDUCED 2019-06-15 15:59:[address] [facility] RED BLOOD CELLS [facility] POCT-GLUCOSE METER 2019-06-15 12:40:00 Tim Perez In [facility] MAGNESIUM 2019-06-15 04:31:00 Tim Perez In [facility] BASIC METABOLIC PANEL 2019-06-15 04:31:00 Tim Perez In [place] [address]) [facility] CBC W/PLT COUNT & AUTO 2019-06-15 04:31:00 Tim Perez In [facility] DIFFERENTIAL [facility] (CELLAVISION MANUAL 2019-06-15 04:31:00 Tim Perez In [facility] - DIFF) [facility] POCT-GLUCOSE METER 2019-06-15 02:03:00 Tim Perez In [facility] TRANSFUSION SERVICE 2019-06-14 17:50:42 Provider, Default [facility] SCAN [facility] POCT-GLUCOSE METER 2019-06-14 17:24:00 Tim Perez In [facility] BASIC METABOLIC PANEL 2019-06-14 16:38:[address] [facility] () [facility] SODIUM, RANDOM URINE 2019-06-14 12:45:00 Tim Perez In [facility] OSMOLALITY, URINE 2019-06-14 12:45:00 Tim Perez In [facility] POCT-GLUCOSE METER 2019-06-14 12:41:00 Tim Perez In [facility] OSMOLALITY, SERUM 2019-06-14 11:56:00 Tim Perez In [facility] REPORT OF PROCEDURE - 2019-06-14 11:01:33 Negin Nguyen I [facility] ENDOSCOPY [facility] UPPER ENDOSCOPY 2019-06-14 09:30:00 Negin Nguyen [facility] POCT-GLUCOSE METER 2019-06-14 06:17:00 Tim Perez In [facility] BASIC METABOLIC PANEL 2019-06-14 04:37:[address] [facility] () [facility] HEPATIC FUNCTION PANEL 2019-06-14 04:37:00 Tim Perez In [facility] MAGNESIUM 2019-06-14 04:37:00 Tim Perez In [facility] PROTHROMBIN TIME/INR 2019-06-14 04:37:00 Tim Perez In [facility] CBC W/PLT COUNT & AUTO 2019-06-14 04:37:00 Tim Perez In [facility] (CELLAVISION MANUAL 2019-06-14 04:37:00 Tim Perez In [facility] POCT-GLUCOSE METER 2019-06-13 23:25:00 Tim Perez In [facility] XR CHEST 1 VIEW 2019-06-13 14:43:00 Marily Vila [facility] s - PORTABLE/BEDSIDE [facility] CBC (HEMOGRAM ONLY) 2019-06-13 11:45:00 Tim Perez In [facility] BASIC METABOLIC PANEL 2019-06-13 11:45:[address] [facility] () [facility] ABORH, MANUAL 2019-06-13 11:45:00 Mariya Lopez [facility] ECG 12-LEAD 2019-06-13 10:57:10 Unknown, Hl7 Doctor [facility] US ABDOMEN LIMITED 2019-06-13 10:25:00 Ana Tim In [facility] US DOPPLER 2019-06-13 10:25:00 Tim Perez In [facility] URINALYSIS WITH 2019-06-13 09:01:00 Marily Vila [facility] - MICROSCOPIC IF INDICATED [facility] BLOOD CULTURE 2019-06-13 08:47:00 Marily Vila [facility] HEPATIC FUNCTION PANEL 2019-06-13 06:04:00 [facility] 2019-06-13 06:04:00 Marily Vila [facility] - (7) [facility] TYPE AND SCREEN, 2019-06-13 06:04:00 [facility] AUTOM[facility] CBC W/PLT COUNT & AUTO 2019-06-13 06:04:00 Marily Vila [facility] - DIFFERENTIAL [facility] (MANUAL DIFFERENTIAL) 2019-06-13 06:04:00 Tim Perez In [facility] POCT-GLUCOSE METER 2019-06-13 06:00:[address] [facility] POCT-GLUCOSE METER 2019-06-13 04:38:[address] [facility] Plan of Care Planned Activity Planned Date Details Comments Source Future Scheduled 2019-10-05 INFLUENZA VACCINE [place] [facility] 00:00:00 [code = INFLUENZA VACCINE] Future Scheduled 2016-07-07 65+ PNEUMOCOCCAL [place] [facility] 00:00:00 VACCINE (1 of 2 - PCV13) [code = 65+ PNEUMOCOCCAL VACCINE (1 of 2 - PCV13)] Future Scheduled 2001-07-07 COLONOSCOPY SCREENING [place] [facility] 00:00:00 [code = COLONOSCOPY SCREENING] Future Scheduled 2001-07-07 SHINGLES VACCINES (#1) [facility] 00:00:00 [code = SHINGLES VACCINES (#1)] Results Test Description Test Time Test Comments Results Result Comments Source Blood Culture - Routine (Left Venipuncture) 2019-06-18 10:00 :00 Test Item Value Reference Range Interpretation Comme nts Result (test code = 6463-4) No growth in 5 days [facility] [id number] 10:00:00 Test Item Value Reference Range Interpretation Comments CULTURE (BEAKER) (test No growth in 5 days code = 1095) BLOOD [id number] 10:00:00 Test Item Value Reference Range Interpretation Comments CULTURE (BEAKER) (test No growth in 5 days code = 1095) Prepare Leuko-Red [id number] 23:54:00 Test Item Value Reference Range Interpretation Comments CROSSMATCH (test code = 2264) COMPATIBLE Unit ABO (test code = O Pos 0699653) UNIT NUMBER (test code = [id number] 934-0) Status (test code = 1874981) [place]_TIMEINCHART Blood Bank Product (test code RED BLOOD CELLS = 2263) PRODUCT CODE (test code = D9270Z40 933-2) [facility] metabolic [id number] 16:25:00 Test Item Value Reference Range Interpretation Comments Sodium (test code = 132 meq/L 136-145 L 2951-2) Potassium (test code = 4.4 meq/L 3.5-5.1 2823-3) Chloride (test code = 107 meq/L 98-107 2075-0) CO2 (test code = 21 meq/L 22-29 L 2028-9) BUN (test code = 34 mg/dL 7-21 H 3094-0) Creatinine (test code 0.82 mg/dL 0.57-1.25 = 2160-0) Glucose (test code = 117 mg/dL 70-105 H 2345-7) Calcium (test code = 8.5 mg/dL 8.4-10.2 41659-8) EGFR (test code = 94 mL/min/1.73 [place] [address]-7) NOT ACCURATE CREATININE CLEARANCE IN PREDICTING GLOMERULAR FILTRATION RATE . ESTIMATED GFR I S NOT APPLICABLE FOR DIALYSIS PATIENTS. MIGUELINA (test code = MIGUELINA) Applications Architect ID - DB Lab Interpretation Abnormal (test code = 19162-3) [facility] METABOLIC [id number] 16:25:00 Test Item Value Reference Range Interpretation Comments SODIUM (BEAKER) 132 meq/L 136-145 L (test code = 381) POTASSIUM (BEAKER) 4.4 meq/L 3.5-5.1 (test code = 379) CHLORIDE (BEAKER) 107 meq/L 98-107 (test code = 382) CO2 (BEAKER) (test 21 meq/L 22-29 L code = 355) BLOOD UREA NITROGEN 34 mg/dL 7-21 H (BEAKER) (test code = 354) CREATININE (BEAKER) 0.82 mg/dL 0.57-1.25 (test code = 358) GLUCOSE RANDOM 117 mg/dL 70-105 H (BEAKER) (test code = 652) CALCIUM (BEAKER) 8.5 mg/dL 8.4-10.2 (test code = 697) EGFR (BEAKER) (test 94 mL/min/1.73 ESTIMA TODD GFR IS code = 1092) sq m NOT ACCURATE CREATININE CLEARANCE IN PREDICTING GLOMERULAR FILTRATION RATE . ESTIMATED GFR I S NOT APPLICABLE FOR DIALYSIS PATIEN TS. Applications Architect ID - DBHemoglobin and [id number] 16:11:00 Test Item Value Reference Range Interpretation Comments Hemoglobin (test code = 8.7 13.7- 17.5 GM/DL L 786-4) Hematocrit (test code = 25.9 % 40.1-51 L 4544-3) MIGUELINA (test code = MIGUELINA) Applications Architect ID - [id number] Lab Interpretation (test Abnormal code = 38125-8) [facility]MO[facility] AND [id number] 16:11:00 Test Item Value Reference Range Interpretation Comments HEMOGLOBIN (BEAKER) (test code = 8.7 GM/DL 13.7-17.5 L 410) HEMATOCRIT (BEAKER) (test code = 25.9 % 40.1-51.0 L 411) Applications Architect ID - [id number]-Glucose [id number] 12:51:00 Test Item Value Reference Range Interpretation Comments POC-Glucose Meter (test 106 mg/dL 70-110 : TE STED AT [facility] code = 1538) [address] [place], [address]: Applications Architect/Techni luke ID = [id number] for SHANNEN NEIL Lab Interpretation (test Normal code = 52796-8) [facility]SE [id number] 12:51:00 Test Item Value Reference Range Interpretation Comments POC-GLUCOSE METER 106 mg/dL 70-110 : TESTED A T [facility] [address] (EMELI) (test code [address] [facility], = 1538) [address]: Applications Architect/Techni luke ID = [id number] for BROOK BARTH Manual [id number] 07:17:00 Test Item Value Reference Range Interpretation Comments % Neutros (test code 91 % This is an = 2816) appended report . These results have been appended to a previously teresa l verified report . % Lymphs (test code = 2 % This i s an 2817) appended report . These results have been appended to a previously teresa l verified report . % Monos (test code = 7 % This is an 2818) appended report . These results have been appended to a previously teresa l verified report . # Neutros (test code 14.01 K/ul 1.78-5.38 H This is an = 2830) appended report . These results have been appended to a previously teresa l verified report . # Lymphs (test code = 0.31 K/ul 1.32-3.57 L This i s an 2831) appended report . These results have been appended to a previously teresa l verified report . # Monos (test code = 1.08 K/uL 0.3-0.82 H This is an 2832) appended report . These results have been appended to a previously teresa l verified report . Total Counted (test 100 This is an code = 1351) appended report . These results have been appended to a previously teresa l verified report . RBC Morphology (test Normal code = 762) WBC Morphology (test Normal code = 487) Platelet Morphology Normal (test code = 486) Polychromasia (test 1+ few This is an code = 478) appended report . These results have been appended to a previously teresa l verified report . Anisocytosis (test 2+ moderate This is a n code = 961) appended report . These results have been appended to a previously teresa l verified report . Macrocytes (test code 2+ moderate This i s an = 964) appended report . These results have been appended to a previously teresa l verified report . Artifact (test code = Present This i s an 3432) appended report . These results have been appended to a previously teresa l verified report . Platelet Conc (test Adequate This is an code = 3438) appended report . These results have been appended to a previously teresa l verified report . MIGUELINA (test code = MIGUELINA) Applications Architect ID - Enid OverholtUser comments: Slide comments: Lab Interpretation Abnormal (test code = 24700-6) [facility](CELLAVISION MANUAL DIFF)2019-06-15 07:17:00 Test Item Value Reference Range Interpretation Comments TOTAL COUNTED (BEAKER) 100 This is an (test code = 1351) appended report. These results have been appended to a previously teresa l verified report . RBC MORPHOLOGY (BEAKER) Normal (test code = 762) WBC MORPHOLOGY (BEAKER) Normal (test code = 487) PLT MORPHOLOGY (BEAKER) Normal (test code = 486) NEUTROPHILS - REL 91 % This is an (CELLAVISION)(BEAKER) append ed report. (test code = 2816) These re sults have been appended to a previously teresa l verified report . LYMPHOCYTES - REL 2 % This is an (CELLAVISION)(BEAKER) append ed report. (test code = 2817) These re sults have been appended to a previously teresa l verified report . MONOCYTES - REL 7 % This is an (CELLAVISION)(BEAKER) append ed report. (test code = 2818) These re sults have been appended to a previously teresa l verified report . NEUTROPHILS - ABS 14.01 K/ul 1.78-5.38 H This is an (CELLAVISION)(BEAKER) append ed report. (test code = 2830) These re sults have been appended to a previously teresa l verified report . LYMPHOCYTES - ABS 0.31 K/ul 1.32-3.57 L This is an (CELLAVISION)(BEAKER) append ed report. (test code = 2831) These re sults have been appended to a previously teresa l verified report . MONOCYTES - ABS 1.08 K/uL 0.30-0.82 H This is an (CELLAVISION)(BEAKER) append ed report. (test code = 2832) These re sults have been appended to a previously teresa l verified report . POLYCHROMATOPHILLIC 1+ few This is an RBCS(BEAKER) (test code = ap pended report. 478) These results have been appended to a previously teresa l verified report . ANISOCYTOSIS (BEAKER) 2+ moderate This i s an (test code = 961) appended r eport. These results have been appended to a previously teresa l verified report . MACROCYTES (BEAKER) (test 2+ moderate Th is is an code = 964) appended report . These results have been appended to a previously teresa l verified report . ARTIFACT Present This is an (CELLAVISION)(BEAKER) append ed report. (test code = 3432) These re sults have been appended to a previously teresa l verified report . PLATELET CONCENTRATION Adequate This is an (CELLAVISION)(BEAKER) append ed report. (test code = 3438) These re sults have been appended to a previously teresa l verified report . Applications Architect ID - Enid OverholtUser comments: Slide comments:[id number] 05:36:00 Test Item Value Reference Range Interpretation Comments Magnesium (test code = 2.2 mg/dL 1.6-2.6 57819-5) MIGUELINA (test code = MIGUELINA) Applications Architect ID - ELEON M Lab Interpretation (test Normal code = 77378-7) [id number] 05:36:00 Test Item Value Reference Range Interpretation Comments MAGNESIUM (BEAKER) (test code = 2.2 mg/dL 1.6-2.6 627) Applications Architect ID - ELENO MBASIC METABOLIC [id number] 05:36:00 Test Item Value Reference Range Interpretation Comments SODIUM (BEAKER) 133 meq/L 136-145 L (test code = 381) POTASSIUM (BEAKER) 4.7 meq/L 3.5-5.1 (test code = 379) CHLORIDE (BEAKER) 110 meq/L 98-107 H (test code = 382) CO2 (BEAKER) (test 19 meq/L 22-29 L code = 355) BLOOD UREA NITROGEN 38 mg/dL 7-21 H (BEAKER) (test code = 354) CREATININE (BEAKER) 0.80 mg/dL 0.57-1.25 (test code = 358) GLUCOSE RANDOM 119 mg/dL 70-105 H (BEAKER) (test code = 652) CALCIUM (BEAKER) 8.3 mg/dL 8.4-10.2 L (test code = 697) EGFR (BEAKER) (test 96 mL/min/1.73 ESTIMA TODD GFR IS code = 1092) sq m NOT ACCURATE CREATININE CLEARANCE IN PREDICTING GLOMERULAR FILTRATION RATE . ESTIMATED GFR I S NOT APPLICABLE FOR DIALYSIS PATIEN TS. Applications Architect ID - ELENO MCBC with platelet count + automated [id number] 05:15:00 Test Item Value Reference Range Interpretation Comments WBC (test code = 6690-2) 15.4 3.5- 10.5 K/L H RBC (test code = 789-8) 2.17 4.63- 6.08 M/L L MCHC (test code = 786-4) 32.5 32.3- 36.5 GM/DL L Hematocrit (test code = 4544-3) 20.6 % 40.1-51 L MCV (test code = 787-2) 94.9 fL 79-92.2 H MCH (test code = 785-6) 30.9 pg 25.7-32.2 RDW (test code = 788-0) 16.9 % 11.6-14.4 H Platelets (test code = 777-3) 188 150- 450 K/CU MM MPV (test code = 17584-6) 9.4 fL 9.4-12.4 nRBC (test code = 413) 0 0- 0 /100 WBC Lab Interpretation (test code = Abnormal 08576-8) [facility]T [facility] & AUTO [id number] 05:15:00 Test Item Value Reference Range Interpretation Comments WHITE BLOOD CELL COUNT (BEAKER) 15.4 K/ L 3.5-10.5 H (test code = 775) RED BLOOD CELL COUNT (BEAKER) 2.17 M/ L 4.63-6.08 L (test code = 761) HEMOGLOBIN (BEAKER) (test code = 6.7 GM/DL 13.7-17.5 L 410) HEMATOCRIT (BEAKER) (test code = 20.6 % 40.1-51.0 L 411) MEAN CORPUSCULAR VOLUME (BEAKER) 94.9 fL 79.0-92.2 H (test code = 753) MEAN CORPUSCULAR HEMOGLOBIN 30.9 pg 25.7-32.2 (BEAKER) (test code = 751) MEAN CORPUSCULAR HEMOGLOBIN CONC 32.5 GM/DL 32.3-36.5 (BEAKER) (test code = 752) RED CELL DISTRIBUTION WIDTH 16.9 % 11.6-14.4 H (BEAKER) (test code = 412) PLATELET COUNT (BEAKER) (test 188 K/CU MM 150-450 code = 756) MEAN PLATELET VOLUME (BEAKER) 9.4 fL 9.4-12.4 (test code = 754) NUCLEATED RED BLOOD CELLS 0 /100 WBC 0-0 (BEAKER) (test code = 413) POCT-GLUCOSE [id number] 02:16:00 Test Item Value Reference Range Interpretation Comments POC-GLUCOSE METER 123 mg/dL 70-110 H : TESTED A T [facility] 6720 (BEAKER) (test code = [facility], 153) [address]: Applications Architect/Techni luke ID = [id number] for NICOLAS KLARISSA ARTUR POCT-GLUCOSE [id number] 17:36:00 Test Item Value Reference Range Interpretation Comments POC-GLUCOSE METER 182 mg/dL 70-110 H : TESTED A T [facility] 6720 (BEAKER) (test code = [facility], 153) [address]: Applications Architect/Techni luke ID = [id number] for LAURA ALCAZAR BASIC METABOLIC [id number] 17:04:00 Test Item Value Reference Range Interpretation Comments SODIUM (BEAKER) 132 meq/L 136-145 L (test code = 381) POTASSIUM (BEAKER) 5.4 meq/L 3.5-5.1 H (test code = 379) CHLORIDE (BEAKER) 106 meq/L 98-107 (test code = 382) CO2 (BEAKER) (test 18 meq/L 22-29 L code = 355) BLOOD UREA NITROGEN 51 mg/dL 7-21 H (BEAKER) (test code = 354) CREATININE (BEAKER) 1.11 mg/dL 0.57-1.25 (test code = 358) GLUCOSE RANDOM 180 mg/dL 70-105 H (BEAKER) (test code = 652) CALCIUM (BEAKER) 8.4 mg/dL 8.4-10.2 (test code = 697) EGFR (BEAKER) (test 66 mL/min/1.73 ESTIMA TODD GFR IS code = 1092) sq m NOT ACCURATE CREATININE CLEARANCE IN PREDICTING GLOMERULAR FILTRATION RATE . ESTIMATED GFR I S NOT APPLICABLE FOR DIALYSIS PATIEN TS. Applications Architect ID - DANYELLEGPOCT-GLUCOSE [id number] 17:01:00 Test Item Value Reference Range Interpretation Comments POC-GLUCOSE METER 130 mg/dL 70-110 H : TESTED A T [facility] 6720 (BEAKER) (test code = [facility] [place] [place], 1538) [address]: Applications Architect/Techni luke ID = [id number] for LAURA DAVIS Osmolality, [id number] 14:44:00 Test Item Value Reference Range Interpretation Comments Osmolality, Ur (test code = 2695-5) 660 40-1,400 mOsm/kg Lab Interpretation (test code = Normal 22720-7) [facility]MOLALITY, [id number] 14:44:00 Test Item Value Reference Range Interpretation Comments OSMOLALITY URINE (BEAKER) (test 660 mOsm/kg 40-1,400 code = 614) Sodium, random [id number] 13:56:00 Test Item Value Reference Range Interpretation Comments Sodium Urine (test <20 meq/L code = 2955-3) MIGUELINA (test code = Reference Range: No MIGUELINA) NormalsOperator ID - ROSIANG [facility] RANDOM [id number] 13:56:00 Test Item Value Reference Range Interpretation Comments SODIUM URINE (BEAKER) (test code = < meq/L 243) Reference Range: No NormalsOperator ID - ROSIANGOsmolality, [id number] 13:53:00 Test Item Value Reference Range Interpretation Comments Osmolality Serum (test code = 300 275- 295 mOsm/kg H 2692-2) Lab Interpretation (test code = Abnormal 82459-9) [facility]OSMOLALITY, [id number] 13:53:00 Test Item Value Reference Range Interpretation Comments OSMOLALITY, SERUM (BEAKER) (test 300 mOsm/kg 275-295 H code = 615) CBC W/PLT COUNT & AUTO [id number] 09:25:00 Test Item Value Reference Range Interpretation Comments WHITE BLOOD CELL COUNT (BEAKER) 22.4 K/ L 3.5-10.5 H (test code = 775) RED BLOOD CELL COUNT (BEAKER) 2.50 M/ L 4.63-6.08 L (test code = 761) HEMOGLOBIN (BEAKER) (test code = 7.8 GM/DL 13.7-17.5 L 410) HEMATOCRIT (BEAKER) (test code = 23.4 % 40.1-51.0 L 411) MEAN CORPUSCULAR VOLUME (BEAKER) 93.6 fL 79.0-92.2 H (test code = 753) MEAN CORPUSCULAR HEMOGLOBIN 31.2 pg 25.7-32.2 (BEAKER) (test code = 751) MEAN CORPUSCULAR HEMOGLOBIN CONC 33.3 GM/DL 32.3-36.5 (BEAKER) (test code = 752) RED CELL DISTRIBUTION WIDTH 17.3 % 11.6-14.4 H (BEAKER) (test code = 412) PLATELET COUNT (BEAKER) (test 197 K/CU MM 150-450 code = 756) MEAN PLATELET VOLUME (BEAKER) 9.4 fL 9.4-12.4 (test code = 754) NUCLEATED RED BLOOD CELLS 0 /100 WBC 0-0 (BEAKER) (test code = 413) (CELLAVISION MANUAL DIFF)2019-06-14 09:25:00 Test Item Value Reference Range Interpretation Comments NEUTROPHILS - REL 82 % (CELLAVISION)(BEAKER) (test code = 2816) LYMPHOCYTES - REL 1 % (CELLAVISION)(BEAKER) (test code = 2817) MONOCYTES - REL 14 % (CELLAVISION)(BEAKER) (test code = 2818) BANDS - REL (CELLAVISION)(BEAKER) 3 % 0-10 (test code = 2826) NEUTROPHILS - ABS 18.37 K/ul 1.78-5.38 H (CELLAVISION)(BEAKER) (test code = 2830) LYMPHOCYTES - ABS 0.22 K/ul 1.32-3.57 L (CELLAVISION)(BEAKER) (test code = 2831) MONOCYTES - ABS 3.14 K/uL 0.30-0.82 H (CELLAVISION)(BEAKER) (test code = 2832) BANDS - ABS (CELLAVISION)(BEAKER) 0.67 K/uL 0.00-0.80 (test code = 2840) TOTAL COUNTED (BEAKER) (test code 100 = 1351) WBC MORPHOLOGY (BEAKER) (test Normal code = 487) GIANT PLATELETS (BEAKER) (test Present code = 313) POLYCHROMATOPHILLIC RBCS(BEAKER) 2+ moderate (test code = 478) HYPOCHROMIA (BEAKER) (test code = 2+ moderate 963) ANISOCYTOSIS (BEAKER) (test code 1+ few = 961) MACROCYTES (BEAKER) (test code = 1+ few 964) POIKILOCYTES (BEAKER) (test code 2+ moderate = 966) ROULEAUX (BEAKER) (test code = 2+ moderate 763) SPHEROCYTES (BEAKER) (test code = 1+ few 768) OVALOCYTES (BEAKER) (test code = 1+ few 477) TEAR DROP CELLS (BEAKER) (test 1+ few code = 481) ARTIFACT (CELLAVISION)(BEAKER) Present (test code = 3432) PLATELET CONCENTRATION Adequate (CELLAVISION)(BEAKER) (test code = 3438) Applications Architect ID - Courtney Marshall comments: Slide comments: WBC: SEGMENTED WITH TOXIC GRANULATIONS PRESENTPOCT-GLUCOSE [id number] 06:28:00 Test Item Value Reference Range Interpretation Comments POC-GLUCOSE METER 99 mg/dL 70-110 : TESTED A T [facility] 6720 (BEAKER) (test code = [place], 1538) [address]: Applications Architect/Techni luke ID = [id number] for DARIO BRISANATACHA Prothrombin time/[id number] 05:34:00 Test Item Value Reference Range Interpretation Comments Protime (test code = 18.4 11.9- 14.2 H 5902-2) seconds INR (test code = 1.6 <=5.9 6301-6) MIGUELINA (test code = MIGUELINA) Effective 08/01/2018: PT Reference Range ChangeNew: 11.9-14.2 Previous: 11.7-14.7 RECOMMENDED COUMADIN/WARFARIN INR THERAPY RANGESSTANDARD DOSE: 2.0-3.0 Includes: PROPHYLAXIS for venous thrombosis, systemic embolization; TREATMENT for venous thrombosis and/or pulmonary embolus.HIGH RISK: Target INR is 2.5-3.5 for patients wiht mechanical heart valves. Lab Interpretation Abnormal (test code = 40976-6) [facility] campusPROTHROMBIN TIME/[id number] 05:34:00 Test Item Value Reference Range Interpretation Comments PROTIME (BEAKER) (test code = 18.4 seconds 11.9-14.2 H 759) INR (BEAKER) (test code = 370) 1.6 <=5.9 Effective 08/01/2018: PT Reference Range ChangeNew: 11.9-14.2 Previous: 11.7- 14.7RECOMMENDED COUMADIN/WARFARIN INR THERAPY RANGESSTANDARD DOSE: 2.0-3.0 Includes: PROPHYLAXIS for venous thrombosis, systemic embolization; TREATMENT for venous thrombosis and/or pulmonary embolus.HIGH RISK: Target INR is2.5-3.5 for patients wiht mechanical heart valves.Hepatic function [id number] 05:24:00 Test Item Value Reference Range Interpretation Comments Protein, Total (test code 7.0 6.0- 8.3 gm/dL = 2885-2) Albumin (test code = 2.1 g/dL 3.5-5 L 85931-4) Total Bilirubin (test code 1.8 mg/dL 0.2-1.2 H = 1975-2) Bilirubin, Direct (test 1.2 mg/dL 0.1-0.5 H code = 1968-7) Alkaline Phosphatase (test 331 U/L 40-150 H code = 6768-6) AST (test code = 1920-8) 258 U/L 5-34 H ALT (test code = 1742-6) 159 U/L 6-55 H MIGUELINA (test code = MIGUELINA) Applications Architect ID Juancarlos Bobo Lab Interpretation (test Abnormal code = 05889-2) [facility] [id number] 05:24:00 Test Item Value Reference Range Interpretation Comments MAGNESIUM (BEAKER) (test code = 1.9 mg/dL 1.6-2.6 627) Applications Architect ID Juancarlos JERRY WBASIC METABOLIC [id number] 05:24:00 Test Item Value Reference Range Interpretation Comments SODIUM (BEAKER) 131 meq/L 136-145 L (test code = 381) POTASSIUM (BEAKER) 5.5 meq/L 3.5-5.1 H (test code = 379) CHLORIDE (BEAKER) 106 meq/L 98-107 (test code = 382) CO2 (BEAKER) (test 16 meq/L 22-29 L code = 355) BLOOD UREA NITROGEN 58 mg/dL 7-21 H (BEAKER) (test code = 354) CREATININE (BEAKER) 1.04 mg/dL 0.57-1.25 (test code = 358) GLUCOSE RANDOM 94 mg/dL 70-105 (BEAKER) (test code = 652) CALCIUM (BEAKER) 8.4 mg/dL 8.4-10.2 (test code = 697) EGFR (BEAKER) (test 71 mL/min/1.73 ESTIMA TODD GFR IS code = 1092) sq m NOT ACCURATE CREATININE CLEARANCE IN PREDICTING GLOMERULAR FILTRATION RATE . ESTIMATED GFR I S NOT APPLICABLE FOR DIALYSIS PATIEN TS. Applications Architect ID Juancarlos JERRY WHEPATIC FUNCTION [id number] 05:24:00 Test Item Value Reference Range Interpretation Comments TOTAL PROTEIN (BEAKER) (test code = 7.0 gm/dL 6.0-8.3 770) ALBUMIN (BEAKER) (test code = 1145) 2.1 g/dL 3.5-5.0 L BILIRUBIN TOTAL (BEAKER) (test code 1.8 mg/dL 0.2-1.2 H = 377) BILIRUBIN DIRECT (BEAKER) (test 1.2 mg/dL 0.1-0.5 H code = 706) ALKALINE PHOSPHATASE (BEAKER) (test 331 U/L 40-150 H code = 346) AST (SGOT) (BEAKER) (test code = 258 U/L 5-34 H 353) ALT (SGPT) (BEAKER) (test code = 159 U/L 6-55 H 347) Applications Architect ID Juancarlos JERRY WPOCT-GLUCOSE [id number] 23:37:00 Test Item Value Reference Range Interpretation Comments POC-GLUCOSE METER 112 mg/dL 70-110 H : TESTED A T [facility] 6720 (EMELI) (test code = [place], 1538) [address]: Applications Architect/Techni luke ID = [id number] for PH NATACHA GREER RAD, CHEST, 1 VIEW, NON [id number] 15:33:00Reason for exam:- >leucocytosisShould this be performed at the bedside?->YesFINAL REPORT Chest, one view History: Leukocytosis Comparison: none Findings:Clear lungs. Normal size heart. No pleural effusion or pneumothorax. A right-sided Port-A-Cath terminates in the superior vena cava. Impression:No acute findings in the chest Signed: Uriel Barrera Verified Date/Time: 06/13/2019 15:33:29 Reading Location: [address] Ortho Consult Reading Room XR chest 1 view portable / [id number] 15:33:00Interface, External Ris In - 06/13/2019 3:35 PM CDTFINAL REPORT Chest, one view History: Leukocytosis Comparison: none Findings:Clear lungs. Normal size heart. No pleural effusion or pneumothorax. A right-sided Port-A-Cath terminates in the superior vena cava. Impression:No acute findings in the chest Signed: Uriel Barrera Verified Date/Time: 06/13/2019 15:33:29Reading Location: [address] [facility] [id number] 13:54:38Interface, External Ris In - 06/13/2019 1:54 PM CDTVentricular Rate 95 BPMAtrial Rate 95 BPMP-R Interval 152 msQRS Duration 84 msQ-T Interval 340 msQTC Calculation(Bazett) 427 msP [place] 49 degreesR [place] 39 degreesT [place] 63 degreesNormal sinus rhythmprobable inferoposterior infarctAbnormal ECGNo previous ECGs availableConfirmed by MD Sherrell, Rory ([id number]) on 06/13/2019 1:54:37 PMCH[facility] HospitalABORH, manual 2019-06-13 12:49:00 Test Item Value Reference Range Interpretation Comments ABO Grouping (test code = 2588) O Rh Factor (test code = 2589) POS [facility]OLIC [id number] 12:45:00 Test Item Value Reference Range Interpretation Comments SODIUM (BEAKER) 136 meq/L 136-145 (test code = 381) POTASSIUM (BEAKER) 5.8 meq/L 3.5-5.1 H (test code = 379) CHLORIDE (BEAKER) 110 meq/L 98-107 H (test code = 382) CO2 (BEAKER) (test 17 meq/L 22-29 L code = 355) BLOOD UREA NITROGEN 75 mg/dL 7-21 H (BEAKER) (test code = 354) CREATININE (BEAKER) 1.06 mg/dL 0.57-1.25 (test code = 358) GLUCOSE RANDOM 124 mg/dL 70-105 H (BEAKER) (test code = 652) CALCIUM (BEAKER) 8.9 mg/dL 8.4-10.2 (test code = 697) EGFR (BEAKER) (test 70 mL/min/1.73 ESTIMA TODD GFR IS code = 1092) sq m NOT ACCURATE CREATININE CLEARANCE IN PREDICTING GLOMERULAR FILTRATION RATE . ESTIMATED GFR I S NOT APPLICABLE FOR DIALYSIS PATIEN TS. Applications Architect CHRISTA NAVARRO FCBC (Hemogram only)2019-06-13 12:29:00 Test Item Value Reference Range Interpretation Comments WBC (test code = 6690-2) 24.0 3.5- 10.5 K/L H RBC (test code = 789-8) 2.72 4.63- 6.08 M/L L MCHC (test code = 786-4) 32.0 32.3- 36.5 GM/DL L Hematocrit (test code = 4544-3) 25.9 % 40.1-51 L MCV (test code = 787-2) 95.2 fL 79-92.2 H MCH (test code = 785-6) 30.5 pg 25.7-32.2 RDW (test code = 788-0) 18.1 % 11.6-14.4 H Platelets (test code = 777-3) 247 150- 450 K/CU MM MPV (test code = 82225-0) 9.3 fL 9.4-12.4 L nRBC (test code = 413) 0 0- 0 /100 WBC Lab Interpretation (test code = Abnormal 21854-3) [facility] (HEMOGRAM ONLY)2019-06-13 12:29:00 Test Item Value Reference Range Interpretation Comments WHITE BLOOD CELL COUNT (BEAKER) 24.0 K/ L 3.5-10.5 H (test code = 775) RED BLOOD CELL COUNT (BEAKER) 2.72 M/ L 4.63-6.08 L (test code = 761) HEMOGLOBIN (BEAKER) (test code = 8.3 GM/DL 13.7-17.5 L 410) HEMATOCRIT (BEAKER) (test code = 25.9 % 40.1-51.0 L 411) MEAN CORPUSCULAR VOLUME (BEAKER) 95.2 fL 79.0-92.2 H (test code = 753) MEAN CORPUSCULAR HEMOGLOBIN 30.5 pg 25.7-32.2 (BEAKER) (test code = 751) MEAN CORPUSCULAR HEMOGLOBIN CONC 32.0 GM/DL 32.3-36.5 L (BEAKER) (test code = 752) RED CELL DISTRIBUTION WIDTH 18.1 % 11.6-14.4 H (BEAKER) (test code = 412) PLATELET COUNT (BEAKER) (test 247 K/CU MM 150-450 code = 756) MEAN PLATELET VOLUME (BEAKER) 9.3 fL 9.4-12.4 L (test code = 754) NUCLEATED RED BLOOD CELLS 0 /100 WBC 0-0 (BEAKER) (test code = 413) U/S, ABDOMINAL, [id number] 10:39:00Please include doppler Abdomen limited area? Add [...] parenchymal liver disease. 3.Mild splenomegaly. Signed: [facility] Verified Date/Time: 06/13/2019 10:39:55 Reading Location: [address] Body Reading Room U/S, DUPLEX, DOPPLER [...] MDReport Verified Date/Time: 06/13/2019 10:39:55 Reading Location: [address] Body Reading Room US [id number] 10:39:00Interface, External Ris In - 06/13/2019 10:42 AM CDTFINAL REPORT TECHNIQUE: Grayscale ultrasound of the abdomen with color Doppler and spectral Doppler ultrasound of the portal/hepatic vasculature. INDICATION: transaminitis. COMPARISON: None. FINDINGS: LIVER: The liver has a nodular contour and is near completely replaced by masses. No focal liver lesions. HEPATIC VASCULATURE:Portal veins are patent with normal waveform and [...] fluid, or distention. Negative sonographic Boo sign.Common bileduct measures 0.4 cm, within normal limits. No intrahepatic biliary ductal dilatation. PANCREAS: Inco mpletely visualized due to overlying bowel gas. The partially visualized pancreatic body is normal. SPLEEN: The spleen is enlarged at 13.1 cm in length. PERITONEUM: No free fluid. RIGHT KIDNEY: Normal in size. No hydronephrosis. No sonographically evident solid mass lesion. MIDLINE VASCULATURE: The visualized inferior vena cava is patent. The maximum visualized aortic diameter is 2.4 cm. Splenic artery and vein are patent. IMPRESSION: 1.The liver is near completely replaced by masses. Consider further evaluation with a MRI of the abdomen with and without intravenous contrast, liver mass protocol,for further evaluation. 2.The elevated hepatic arterial resistive indices are likely due to the paren chymal liver disease. 3.Mild splenomegaly. Signed: Barrett Escalona MDReport Verified Date/Time: 06/13/2019 10:39:55 Reading Location: [facility] C013Y CT Body Reading Room [facility] abdomen [id number] 10:39:00Interface, External Ris In - 06/13/2019 10:42 AM CDTFINAL REPORT TECHNIQUE: Grayscale ultrasound of the abdomen [...] are elevated at 0.8. The proper hepatic art erial acceleration time is 0.06 seconds. BILIARY:Gallbladder: No gallstones or sludge. No gallbladder wall thickening, pericholecystic fluid, or distention. Negative sonographic Boo sign.Common bileduct measures 0.4 cm, within normal limits. No intrahepatic biliary ductal dilatation. PANCREAS: Incompletely visualized due to overlying bowel gas. The partially visualized pancreatic body is normal. SPLEEN: The spleen is enlarged at 13.1 cm in length. PERITONEUM: No free fluid. RIGHT KIDNEY: Normal in size. No hydronephrosis. No sonographically evident solid mass lesion. MIDLINE VASCULATURE: The visualized inferior vena cava is patent. The maximum visualized aortic diameter is 2.4 cm. Splenic sienna ry and vein are patent. IMPRESSION: 1.The liver is near completely replaced by masses. Consider further evaluation with a MRI of the abdomen with and without intravenous contrast, liver mass protocol,for further evaluation. 2.The elevated hepatic arterial resistive indices are likely due to the parenchymal liver disease. 3.Mild splenomegaly. Signed: Barrett Escalona MDReport Verified Date/Time: 06/13/2019 10:39:55 Reading Location: [facility] B1 C013Y CT Body Reading [facility] If [id number] 09:43:00 Test Item Value Reference Range Interpretation Comments Color, UA (test code = Yellow 5778-6) Clarity, UA (test code = Clear 5767-9) Specific [place], UA 1.024 1.001-1.035 (test code = 5811-5) pH, UA (test code = 5.0 5.0-8.0 5803-2) Protein, UA (test code = Negative Negative 13215-1) Glucose, UA (test code = Negative Negative 365) Ketones, UA (test code = Negative Negative 2514-8) Bilirubin, UA (test code Negative Negative = 19455-6) Blood, UA (test code = Negative Negative 27558-0) Nitrite, UA (test code = Negative Negative 5802-4) Leukocytes, UA (test Negative Negative code = 5799-2) Urobilinogen, UA (test 2.0 mg/dL 0.2-1 H code = 94704-2) Specimen Source (test code = 2795) MIGUELINA (test code = MIGUELINA) Applications Architect ID - [auto]Applications Architect ID - techOperator ID - tech Lab Interpretation (test Abnormal code = 17439-2) [facility]IN[facility]IS WITH MICROSCOPIC IF [id number] 09:43:00 Test Item Value Reference Range Interpretation Comments COLOR (BEAKER) (test code = 470) Yellow CLARITY (BEAKER) (test code = 469) Clear SPECIFIC GRAVITY UA (BEAKER) (test 1.024 1.001-1.035 code = 468) PH UA (BEAKER) (test code = 467) 5.0 5.0-8.0 PROTEIN UA (BEAKER) (test code = Negative Negative 464) GLUCOSE UA (BEAKER) (test code = Negative Negative 365) KETONES UA (BEAKER) (test code = Negative Negative 371) BILIRUBIN UA (BEAKER) (test code = Negative Negative 462) BLOOD UA (BEAKER) (test code = 461) Negative Negative NITRITE UA (BEAKER) (test code = Negative Negative 465) LEUKOCYTE ESTERASE UA (BEAKER) Negative Negative (test code = 466) UROBILINOGEN UA (BEAKER) (test code 2.0 mg/dL 0.2-1.0 H = 463) SOURCE(BEAKER) (test code = 2795) Applications Architect ID - [auto]Applications Architect ID - techOperator ID - techManual Differential 2019-06-13 08:51:00 Test Item Value Reference Range Interpretation Comments % Neutros (manual) (test code = 76 % 1359) % Lymphs (manual) (test code = 9 % 1360) % Monos (manual) (test code = 1361) 12 % % Eos (manual) (test code = 1362) 1 % % Baso (manual) (test code = 1363) 0 % % Metamyelo (manual) (test code = 1 % 0-0 H 258) % Atypical Lymphs (test code = 260) 1 % 0-0 H # Neutros (manual) (test code = 15.73 1.80- 8.00 K/L H 1365) # Lymphs (manual) (test code = 1.86 1.48- 4.50 K/L 1366) # Monos (manual) (test code = 1367) 2.48 0.00- 1.30 K/L H # Eos (manual) (test code = 1368) 0.21 0.00- 0.50 K/L # Baso (manual) (test code = 1369) 0.00 0.00- 0.20 K/L # Metamyelo (manual) (test code = 0.21 0.00- 0.00 K/L H 261) # Atypical Lymphs (test code = 263) 0.21 0.00- 0.00 K/L H Total Counted (test code = 1351) 100 WBC Morphology (test code = 487) Normal Platelet Morphology (test code = Normal 486) Anisocytosis (test code = 961) 1+ few Polychromasia (test code = 478) 1+ few Lab Interpretation (test code = Abnormal 53004-9) [facility] W/PLT COUNT & AUTO [id number] 08:51:00 Test Item Value Reference Range Interpretation Comments WHITE BLOOD CELL COUNT (BEAKER) 20.7 K/ L 3.5-10.5 H (test code = 775) RED BLOOD CELL COUNT (BEAKER) 2.66 M/ L 4.63-6.08 L (test code = 761) HEMOGLOBIN (BEAKER) (test code = 8.3 GM/DL 13.7-17.5 L 410) HEMATOCRIT (BEAKER) (test code = 25.0 % 40.1-51.0 L 411) MEAN CORPUSCULAR VOLUME (BEAKER) 94.0 fL 79.0-92.2 H (test code = 753) MEAN CORPUSCULAR HEMOGLOBIN 31.2 pg 25.7-32.2 (BEAKER) (test code = 751) MEAN CORPUSCULAR HEMOGLOBIN CONC 33.2 GM/DL 32.3-36.5 (BEAKER) (test code = 752) RED CELL DISTRIBUTION WIDTH 17.2 % 11.6-14.4 H (BEAKER) (test code = 412) PLATELET COUNT (BEAKER) (test 217 K/CU MM 150-450 code = 756) MEAN PLATELET VOLUME (BEAKER) 9.2 fL 9.4-12.4 L (test code = 754) NUCLEATED RED BLOOD CELLS 0 /100 WBC 0-0 (BEAKER) (test code = 413) (MANUAL DIFFERENTIAL)2019-06-13 08:51:00 Test Item Value Reference Range Interpretation Comments NEUTROPHILS - REL (DIFF) (BEAKER) 76 % (test code = 1359) LYMPHOCYTES - REL (DIFF) (BEAKER) 9 % (test code = 1360) MONOCYTES - REL (DIFF) (BEAKER) 12 % (test code = 1361) EOSINOPHILS - REL (DIFF) (BEAKER) 1 % (test code = 1362) BASOPHILS - REL (DIFF) (BEAKER) 0 % (test code = 1363) METAMYELOCYTES-REL (DIFF) (BEAKER) 1 % 0-0 H (test code = 258) ATYPICAL LYMPHOCYTE - REL (DIFF) 1 % 0-0 H (BEAKER) (test code = 260) NEUTROPHILS - ABS (DIFF) (BEAKER) 15.73 K/ L 1.80-8.00 H (test code = 1365) LYMPHOCYTES - ABS (DIFF) (BEAKER) 1.86 K/ L 1.48-4.50 (test code = 1366) MONOCYTES - ABS (DIFF) (BEAKER) 2.48 K/ L 0.00-1.30 H (test code = 1367) EOSINOPHILS - ABS (DIFF) (BEAKER) 0.21 K/ L 0.00-0.50 (test code = 1368) BASOPHILS - ABS (DIFF) (BEAKER) 0.00 K/ L 0.00-0.20 (test code = 1369) METAMYELOCTYES - ABS (DIFF) 0.21 K/ L 0.00-0.00 H (BEAKER) (test code = 261) ATYPICAL LYMPHOCYTES - ABS (DIFF) 0.21 K/ L 0.00-0.00 H (BEAKER) (test code = 263) TOTAL COUNTED (BEAKER) (test code 100 = 1351) WBC MORPHOLOGY (BEAKER) (test code Normal = 487) PLT MORPHOLOGY (BEAKER) (test code Normal = 486) ANISOCYTOSIS (BEAKER) (test code = 1+ few 961) POLYCHROMATOPHILLIC RBCS(BEAKER) 1+ few (test code = 478) BASIC METABOLIC [id number] 08:01:00 Test Item Value Reference Range Interpretation Comments SODIUM (BEAKER) 135 meq/L 136-145 L (test code = 381) POTASSIUM (BEAKER) 5.9 meq/L 3.5-5.1 H (test code = 379) CHLORIDE (BEAKER) 109 meq/L 98-107 H (test code = 382) CO2 (BEAKER) (test 18 meq/L 22-29 L code = 355) BLOOD UREA NITROGEN 75 mg/dL 7-21 H (BEAKER) (test code = 354) CREATININE (BEAKER) 0.99 mg/dL 0.57-1.25 (test code = 358) GLUCOSE RANDOM 123 mg/dL 70-105 H (BEAKER) (test code = 652) CALCIUM (BEAKER) 8.8 mg/dL 8.4-10.2 (test code = 697) EGFR (BEAKER) (test 75 mL/min/1.73 ESTIMA TODD GFR IS code = 1092) sq m NOT ACCURATE CREATININE CLEARANCE IN PREDICTING GLOMERULAR FILTRATION RATE . ESTIMATED GFR I S NOT APPLICABLE FOR DIALYSIS PATIEN TS. Applications Architect ID - COURTNEY FType and screen, [id number] 07:21:00 Test Item Value Reference Range Interpretation Comments ABO/RH AUTOMATED (BEAKER) (test O POSITIVE code = 2260) Ab Scrn (test code = 890-4) NEGATIVE [facility] [id number] 06:40:00 Test Item Value Reference Range Interpretation Comments TOTAL PROTEIN (BEAKER) (test code = 7.0 gm/dL 6.0-8.3 770) ALBUMIN (BEAKER) (test code = 1145) 2.1 g/dL 3.5-5.0 L BILIRUBIN TOTAL (BEAKER) (test code 2.6 mg/dL 0.2-1.2 H = 377) BILIRUBIN DIRECT (BEAKER) (test 1.7 mg/dL 0.1-0.5 H code = 706) ALKALINE PHOSPHATASE (BEAKER) (test 369 U/L 40-150 H code = 346) AST (SGOT) (BEAKER) (test code = 396 U/L 5-34 H 353) ALT (SGPT) (BEAKER) (test code = 182 U/L 6-55 H 347) Applications Architect ID - DELIA LPOCT-GLUCOSE [id number] 06:11:00 Test Item Value Reference Range Interpretation Comments POC-GLUCOSE METER 129 mg/dL 70-110 H : TESTED A T [facility] 6720 (BEAKER) (test code [facility], = 1538) [address]: Applications Architect/Techni luke ID = [id number] for GARC ADITI FERNÁNDEZ POCT-GLUCOSE [id number] 04:51:00 Test Item Value Reference Range Interpretation Comments POC-GLUCOSE METER 125 mg/dL 70-110 H : TESTED A T [facility] 6720 (BEAKER) (test code [facility], = 1538) [address]: Applications Architect/Techni luke ID = [id number] for ADITI QUIÑONEZ
[2019-08-16] MEDS ORDERED: ACETAMINOPHEN 500 MG TAB PO PRN (12:29)
[2019-08-16] MEDS ORDERED: NA CHLORIDE 0.9% 500 ML IV ONE (12:53)
[2019-08-16 12:54] LABS: Absolute Lymphocytes (CBC) 1.6 K/uL (0.7-4.9); Basophils % 1.4 % (0-1.3); Hematocrit 34.1 % (39.6-49.0); MPV 7.4 fL (7.6-11.3); RBC Red Blood Cell Count 3.88 M/uL (4.33-5.43)
[2019-08-16 13:00] LABS: Protime INR 1.36
[2019-08-16] MEDS ORDERED: NA CHLORIDE 0.9% 1,000 ML IV SCH (13:00)
[2019-08-16 13:19] LABS: Albumin 1.6 g/dL (3.4-5.0); Magnesium 1.8 mg/dL (1.8-2.4); Phosphorus 6.4 mg/dL (2.5-4.9); Potassium 4.9 mmol/L (3.5-5.1)
[2019-08-16] MEDS ORDERED: MORPHINE 2 MG/ML SYR IV ONE (13:32)
[2019-08-16] MEDS ORDERED: CIPROFLOXACIN 400mg IV 400 MG/200 ML BAG IV SCH ×2 (14:07→15:00)
--- NOTE | 2019-08-16 15:03 | RAD REPORT ---
EXAM DESCRIPTION: RAD - Chest Pa And Lat (2 Views) - 08/16/2019 2:51 pm CLINICAL HISTORY: SOB COMPARISON: Portable May 2018, only April 2018 TECHNIQUE: Frontal and lateral views of the chest were obtained. FINDINGS: The lungs are underinflated compared to the prior study. Focal opacification is present in the medial left base. No diffuse pulmonary edema. Interstitial markings are otherwise unremarkable. Right hemidiaphragm elevation again noted. Heart size is normal and central vasculature is within normal limits. No pleural effusion or pneumot horax seen. No acute bony finding noted. No aortic abnormality. IMPRESSION: Medial left base opacification suspicious for early pneumonia. Given the shallow inspiration, the left base findings are potentially atelectasis. Correlation is nee ded with clinical presentation.
[2019-08-16] MEDS: TRAMADOL HCL 50 MG TAB PO PRN (15:21)
[2019-08-16] MEDS: NA CHLORIDE 0.9% 1,000 ML IV SCH (15:22)
[2019-08-16] MEDS ORDERED: ALBUMIN HUMAN 25% 100 ML IV SCH (16:00)
[2019-08-16] MEDS ORDERED: ALBUMIN HUMAN 25% 100 ML IV ONE (16:00)
[2019-08-16] MEDS ORDERED: MORPHINE 2 MG/ML SYR IV PRN (16:21)
[2019-08-16] MEDS: AZITHROMYCIN IV 500 MG in NA CHLORIDE 0.9% 250 ML IVPB SCH (17:00)
[2019-08-16] MEDS: ALBUMIN HUMAN 25% 100 ML IV SCH (17:24)
--- NOTE | 2019-08-16 17:30 | RAD REPORT ---
EXAM DESCRIPTION: CT - Abdomen Pelvis Wo Contrast - 08/16/2019 5:06 pm CLINICAL HISTORY: ascites, colon ca, liver mets, compartment synd COMPARISON: Chest Abdomen Pelvis W Cont dated 06/12/2019 TECHNIQUE: Axial [address] imaging of the abdomen and pelvis was performed without IV contrast. No IV contrast was given because of allergy, abnormal renal function, patient refusal or physician re quest. No oral contrast administered. All CT scans are performed using dose optimization technique as appropriate and may include automated exposure control or mA/KV adjustment according to patient size. FINDINGS: Linear stranding in each base is most likely atelectasis. Liver is grossly abnormal. Patient has known very extensive liver metastatic disease. Comparison is l imited as this is a noncontrast study. An emergent change in the appearance of the liver is not seen. No spleen or pancreatic abnormality. Gallbladder and biliary tree are also without suspicious finding . No hydronephrosis or suspicious renal mass. No significant adrenal finding. Isodense renal masses an d pyelonephritis cannot be excluded in the absence of IV contrast. Urinary bladder is contracted arou nd a Ortiz catheter. Small hiatal hernia is present. No gastric wall thickening or mass. No dilated large or small bowel l oop identifiable. Diverticulosis is present in the colon without diverticulitis. Colon mass or colon wall thickening are not identifiable. No appendicitis findings. No free air or pneumatosis. A large volume of ascites fills and distends the peritoneal cavity. Con gested appearance seen in the mesenteric fat. Nodularity of the omentum is identifiable. No hernia, m ass or bulky lymphadenopathy. No suspicious bony findings. IMPRESSION: Large volume of ascites distending the abdomen. Congestion and edema are seen in the mes enteric fat. Grossly abnormal liver with innumerable metastatic lesions throughout the liver. No emergent change t o the liver. No accurate assessment can be made regarding progression or improvement in the metastati c disease. No bulky lymphadenopathy or new mass lesions seen. There is nodularity along the omentum.
[2019-08-16] MEDS: CEFTRIAXONE/SWI 1gm 1 GM/10 ML SYR IVP SCH (21:05)
--- NOTE | 2019-08-17 00:19 | HP ---
Date of Admission: 08/16/2019 Chief Complaint: Direct admission from Dr. Beavers's office due to abnormal labs. Patient also reports abdominal distention. Code Status: Full. History Of Present Illness: Patient is a 69-year-old male with past medical history of colon cancer with metastasis to the liver. Patient is inoperable, was on palliative care with chemotherapy, has d eveloped portal hypertension and varices, had recent trial of banding the esophageal varices, but was unsuccessful. Patient comes into Dr. Beavers's office for routine visit, found to be hypotensive with blood pressure in the 60s to 80s. Kidney function was elevated at 3.5 and LFTs were elevated. He wa s given IV fluid 1 L and then referred directly to the hospital for further evaluation and treatment. Patient does take diuretics. Patient's blood pressure on arrival was 90s systolic, complaining of some abdominal distention and pain. Patient's symptoms are constant, moderate, progressively worseni ng. Overall has a poor prognosis. Past Medical History: GERD, hiatal hernia, colon cancer with metastasis to the liver, has invasive a denocarcinoma. Past Surgical History: Hernia repair on the inguinal in the right side and previous colonoscopy and EGD. Social History: Patient is , has a stepdaughter and a 5-year-old son. Denies any tobacco use or alcohol use. No illicit drug use. Allergies: NO KNOWN DRUG ALLERGIES. Medications: List reviewed. Physical Examination: Vital Signs: Temperature 97, heart rate 75, blood pressure 82/50, respirations 20, O2 97% on room ai r. General: Awake, alert, oriented x3, in some mild distress due to pain, ill-appearing male, appears o lder than stated age, frail, cachectic. HEENT: Normocephalic, atraumatic. PERRLA. EOMI. Dry mucous membranes. Oropharynx is clear. Conj unctiva shows some icterus. Neck: Supple. JVD is distended. Cardiovascular: S1, S2. Regular rate and rhythm. Peripheral pulses weak. Respiratory: Diminished breath sounds at the bases. No wheezing or stridor. No use of accessory mu scles. Gastrointestinal: Abdomen is distended. Has moderate ascites, tenderness to palpation. Bowel sound s positive. Extremities: No clubbing or cyanosis. Patient has 3+ edema. No calf tenderness. Neuro: Cranial nerves 2 through 12 intact grossly. No focal neurological deficits. Speech is alicia l. Skin: Patient appears jaundiced. No rashes. Psych: Mood is depressed. Affect is flat. Insight and judgment are good. Laboratory Data: Sodium 131, potassium 4.9, chloride 99, CO2 of 22, BUN 48, creatinine 3.79, glucose 58, calcium 8.1, phosphorus 6.4, magnesium 1.8, AST 712, ALT 82, total bilirubin 2, alkaline phospha tase 394, albumin 1.6. WBC 18.1, H and H 11.2 and 34.1, platelets 261, neutrophils 77%. INR 1.36. Assessment: A 69-year-old male with: 1.Acute hypotension. Patient has third-spacing, has moderate ascites. Blood pressure is 80s systol ic. We will give 0.5 L bolus and start on IV fluids. Have to be cautious with his IV fluid hydratio n due to ascites. We will monitor closely. 2.Acute kidney injury, likely due to diuretics. We will hold diuretics for now. Also due to decrea sed p.o. intake, we will consult Nephrology. Patient may have hepatorenal syndrome. 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 [place] ent is on palliative care chemotherapy. 4.Gastroesophageal reflux disease. Patient has had esophagitis seen on previous EGDs. We will cont inue with PPI. 5.Severe protein-calorie malnutrition. Patient's albumin is 1.6. 6.Elevated liver enzymes secondary to above. 7.Hyponatremia secondary to his malignancy. 8.Deep vein thrombosis prophylaxis, SCDs. No chemical anticoagulation due to abnormal INR of 1.36 a nd history of liver metastasis. Plan: We will continue with pain control. Consult GI. Patient will need paracentesis. Called down to Radiology. There is no Radiology in-house. Will need to either be done by GI or wait until Mond ay. Consult Nephrology. Dr. Beavers, patient's oncologist, will also be following. Overall very poor prognosis. We will place on prophylactic antibiotics due to possibility of SBP. SA/MODL Voice ID: [id number]
[2019-08-17] MEDS: ALBUMIN HUMAN 25% 100 ML IV SCH (00:28)
[2019-08-17] MEDS ORDERED: ALBUMIN HUMAN 25% 100 ML IV ONE (00:34)
[2019-08-17] MEDS: TRAMADOL HCL 50 MG TAB PO PRN ×2 (00:48→20:38)
[2019-08-17] MEDS ORDERED: ALBUMIN HUMAN 25% 100 ML IV SCH (01:00)
[2019-08-17] MEDS: NA CHLORIDE 0.9% 1,000 ML IV SCH ×2 (04:50→16:54)
[2019-08-17 05:16] LABS: Absolute Lymphocytes (CBC) 2.5 K/uL (0.7-4.9); Basophils % 0.1 % (0-1.3); Hematocrit 30.1 % (39.6-49.0); Lymphocytes % 16.4 % (15.3-44.8); MPV 7.3 fL (7.6-11.3); RBC Red Blood Cell Count 3.41 M/uL (4.33-5.43)
[2019-08-17 06:02] LABS: Albumin 2.3 g/dL (3.4-5.0); Bilirubin Total 1.9 mg/dL (0.2-1.0); Potassium 5.1 mmol/L (3.5-5.1); Protein, Total 7.8 g/dL (6.4-8.2)
[2019-08-17 08:17] LABS: Anisocytosis 1+; Blood Morphology Comment NOTED (NOT SEEN); Platelet Estimate ADEQ; Urine White Blood Cell Casts OK
[2019-08-17] MEDS: AZITHROMYCIN IV 500 MG in NA CHLORIDE 0.9% 250 ML IVPB SCH (08:58)
[2019-08-17] MEDS: CEFTRIAXONE/SWI 1gm 1 GM/10 ML SYR IVP SCH (08:58)
--- NOTE | 2019-08-17 13:28 | PN ---
Date of Progress Note: 08/17/2019 Subjective: Patient seen and examined. Chart reviewed and case discussed with RN and Dr. Castillo. Patient still complaining of some abdominal distention, stating he has no appetite. Medications: List reviewed. Physical Examination: Vital Signs: Temperature 97, heart rate 77, blood pressure 99/51, respirations 20, O2 93% on room air. General: Awake, alert, oriented x3. Elderly male, frail, cachectic. BMI 20. Ill-appearing. CV: S1, S2. Regular rate and rhythm. Peripheral pulses weak. Respiratory: Diminished breath sounds. No wheezing or stridor. Gastrointestinal: Abdomen is distended, moderate ascites. Positive bowel sounds. Mild tenderness to palpation. Extremities: No clubbing or cyanosis. Patient has 3+ edema. Neuro: Cranial nerves 2 through 12 intact grossly. No focal neurological deficits. Speech is normal. Skin: Patient does have some ecchymosis. No rash. Psych: Mood is depressed. Affect is flat. Insight and judgment are good. Laboratory Data: Sodium 133, potassium 5.1, chloride 100, CO2 of 18, BUN 51, creatinine 4.14, glucose 64, calcium 7.6, AST 41, ALT 63, total bilirubin 1.9, alkaline phosphatase 313, albumin 2.3. WBC 15.4, H and H 9.8 and 30.1, platelets 205. CT scan of the abdomen and pelvis shows large volume of ascites distending the abdomen, congestion edema is seen in the mesenteric fat, grossly abnormal liver with innumerable metastatic lesions throughout the liver. No emergent change to the liver. No bulky adenopathy or new mass lesions. Nodularity along the omentum. Assessment And Plan: A 69-year-old male with: 1. Acute hypotension, likely from third spacing. Patient has moderate ascites. Blood pressure continues to be in the 90s despite IV fluids. 2. Acute kidney injury, probably hepatorenal syndrome secondary to diuretics, which are on hold now. Kidney function is worsening, currently above 4. Urine output is low. Discussed with Renal. Patient will likely need to be started on dialysis, however, is not the ideal candidate due to his hypotension and other comorbid conditions. We will defer to Nephrology. 3. Invasive adenocarcinoma of the colon, rectosigmoid along with numerous metastases to the liver, inoperable, on palliative chemotherapy. Patient follows with Dr. Beavers. Overall, very poor prognosis. 4. Pneumonia. We will continue with IV antibiotics. Will obtain blood cultures. Overall poor prognosis. 5. Severe protein-calorie malnutrition. Patient did receive albumin infusion. Continue with protein supplementation. We will add Megace to improve appetite. Nutrition consult. 6. Elevated liver enzymes secondary to above. 7. Hyperbilirubinemia secondary to above. 8. Hyponatremia, improving secondary to malignancy. 9. Gastroesophageal reflux disease with esophagitis. Continue PPI. Deep venous thrombosis prophylaxis with SCDs no chemical anticoagulation. Will need paracentesis. Renal function is worsening. May need to be on dialysis, however, not a good candidate due to his low blood pressure and other comorbidities. We will defer to Nephrology. /ANKIT Voice ID: [id number] Report ID: [id number] MTDD
--- NOTE | 2019-08-17 13:45 | P.CNS ---
Date of Consult: 08/17/19 History of Present Illness: A 69-year-old male with past medical history of colon cancer with liver metastas is on palliative chemotherapy , Ascitis with portal hypertension and esophageal varices pt admitted for Oncology office for hypotension and abnormal labs as per pt last chemotherpay was in july, his Cr in july was 1.1, on August 08 Cr was up to 1.5 , pt had distended tense abdomen , denied recent IV contrast NSAID intake in Er Cr 3.8, na 131 stated he have poor appetiate, denied chest pain, palpitation, vomiting or diarrheA Physical exam general: AWAKE AND ALERT, NAD , thin Neck; Supple, No elevated JVD hear: RRR, normal S1,2 no murmur or rub Chest: CTAB, no rlaes or wheezes Abdomen: Distended , tense, NT Extremities tarce edema, with LE bluish discoloration CHUCKIE possibly due to chemotherapy +/_ compartment Syndrome +/- HRS II Abd CT no hydro will recommend paracentecis will start midodrine and oterotide will hold lasix and aldactone pt with overall poor prognosis, if renal function cont to detreotiate then pt will need HD , though HD will be challenging in view of his BP and functional status and will not alter pt prognosis , I explained risk and benefits of HD , pt also encouraged to discuss his prognosis and treatment option with the Oncology team no need for renak replacement therapy at this time Hyponatremia improving fluid restriction metastatic colon Ca cont supportive care increased LFT due to liver mets Poor prognosis total time spent 50min Allergies No Known Allergies Allergy (Verified 07/12/19 14:31) Home Medications: Codeine/APAP [Tylenol #3*] 1 tab PO QID PRN 07/12/19 Ondansetron [Zofran (Odt)*] 1 tab PO PRN PRN 07/12/19 Furosemide 40 mg PO DAILY 08/16/19 Spironolactone [Aldactone] 100 mg PO DAILY 08/16/19 - Past Medical/Surgical History Diabetic: No -: Cancer Colon -: Hernia repair -: portacath Right chest - Social History Alcohol use: No CD- Drugs: No Caffeine use: No Place of Residence: Home Physical Examination Temp Pulse Resp BP Pulse Ox 97 F 77 20 99/51 L 94 08/17/19 08:00 08/17/19 08:00 08/17/19 13:28 08/17/19 08:00 08/17/19 13:28 Laboratory Data (last 24 hrs) 08/17/19 05:00: Sodium 133 L, Potassium 5.1, BUN 51 H, Creatinine 4.14 H, Glucose 64 L, Total Bilirubin 1.9 H, AST 481 H* D, ALT 63, Alkaline Phosphatase 313 H 08/17/19 05:00: WBC 15.4 H D, Hgb 9.8 L, Hct 30.1 L, Plt Count 205 D 08/16/19 : Triglycerides Cancelled, Cholesterol Cancelled, HDL Cholesterol Cancelled, Cholesterol/HDL Ratio Cancelled
[2019-08-17] MEDS: MIDODRINE HCL 5 MG TABLET PO SCH ×2 (13:49→20:33)
[2019-08-17] MEDS: OCTREOTIDE ACETATE 100 MCG/ML IV SCH ×2 (13:49→20:39)
[2019-08-17] MEDS: ONDANSETRON 4 MG/2 ML VIAL IV PRN (14:02)
[2019-08-17 14:59] LABS: Urine Protein/Creatinine Ratio 1.28 ratio (<0.15)
[2019-08-17 16:17] LABS: Urine Appearance TURBID; Urine Blood 3+ (NEG); Urine Color RED; Urine Glucose NEGATIVE (NEG); Urine Protein 2+ (NEG); Urine Specific Gravity 1.025 (1.005-1.030)
[2019-08-17 17:50] LABS: Urine Amorphous Sediment 1+ /HPF (NONE SEEN); Urine Bacteria LOADED /HPF (NONE SEEN); Urine Culture Reflex Order REFLEXED; Urine RBC >50 /HPF (NONE SEEN)
[2019-08-17 17:54] LABS: Urine Bilirubin 2+ (NEG)
[2019-08-17] MEDS ORDERED: MEGESTROL 400 MG/10 ML UCUP PO SCH (21:00)
[2019-08-18 09:04] LABS: Protein, Total 7.9 g/dL (6.4-8.2)
[2019-08-18 09:07] LABS: Potassium 6.1 mmol/L (3.5-5.1)
[2019-08-18 09:09] LABS: Absolute Lymphocytes (CBC) 2.2 K/uL (0.7-4.9); Basophils % 0.4 % (0-1.3); Lymphocytes % 11.1 % (15.3-44.8); MPV 7.4 fL (7.6-11.3); RBC Red Blood Cell Count 3.73 M/uL (4.33-5.43)
[2019-08-18] MEDS ORDERED: D50W 25 GM/50 ML SYRINGE/VIAL IV ONE ×2 (09:17→17:12)
[2019-08-18] MEDS ORDERED: CALCIUM GLUC 10% INJ 4.65 MEQ in NA CHLORIDE 0.9% 100 ML IV ONE ×2 (09:17→17:11)
[2019-08-18] MEDS ORDERED: SOD POLYSTYREN SUL 15 GM/60 ML UCUP PO ONE ×2 (09:17→16:00)
[2019-08-18] MEDS ORDERED: ALBUTEROL 2.5 MG/3 ML NEB SOL NEB ONE ×3 (09:17→17:41)
[2019-08-18] MEDS ORDERED: INSULIN -REGULAR HUMAN 50 UNIT/0.5 ML ML IV ONE ×2 (09:33→17:12)
[2019-08-18 09:41] LABS: Blood Morphology Comment NOT SEEN (NOT SEEN); Platelet Estimate ADEQ
[2019-08-18] MEDS: CEFTRIAXONE/SWI 1gm 1 GM/10 ML SYR IVP SCH (09:41)
[2019-08-18] MEDS: AZITHROMYCIN IV 500 MG in NA CHLORIDE 0.9% 250 ML IVPB SCH (09:42)
[2019-08-18] MEDS: NA CHLORIDE 0.9% 1,000 ML IV SCH (09:43)
[2019-08-18] MEDS: OCTREOTIDE ACETATE 100 MCG/ML IV SCH ×3 (09:44→21:37)
[2019-08-18] MEDS: MEGESTROL 400 MG/10 ML UCUP PO SCH (09:47)
[2019-08-18] MEDS ORDERED: SODIUM BICARB 50 MEQ/50ML VIAL IV ONE (10:00)
[2019-08-18] MEDS: MIDODRINE HCL 5 MG TABLET PO SCH ×3 (10:30→21:37)
--- NOTE | 2019-08-18 10:41 | P.PN ---
Subjective Date of Service: 08/18/19 Subjective: Worsening Subjective A 69-year-old male with past medical history of colon cancer with liver metastasis on palliative chemotherapy , Ascitis with portal hypertension and esophageal varices pt admitted for Oncology office for hypotension and abnormal labs as per pt last chemotherpay was in july, his Cr in july was 1.1, on August 08 Cr was up to 1.5 , pt had distended tense abdomen , denied recent IV contrast NSAID intake in Er Cr 3.8, na 131 today still oliguric K 6.1, cr cont to trend up will start Pt on Bicarb drip cardiac monitoring, and kayexalate i had a prolonged discussion with pt about his prognosis and wishes, pt is aware that his life expectancy is 2-6months without HD, I explained to Pt that with his current chuckie life expectancy might be ~1wk , pt stated he wants to live longer, considering pt functional status and disease prognosis , we agreed for trial of HD , and to reevaluate goal of care after 2-3 dialysis treatments will consult surgery for catheter placement Physical exam general: AWAKE AND ALERT, NAD , thin Neck; Supple, No elevated JVD hear: RRR, normal S1,2 no murmur or rub Chest: CTAB, no rlaes or wheezes Abdomen: Distended , tense, NT Extremities trace edema CHUCKIE possibly due to chemotherapy +/_ compartment Syndrome +/- HRS II Abd CT no hydro will recommend paracentecis will start midodrine and oterotide will hold lasix and aldactone pt with overall poor prognosis, i had a prolonged discussion with pt about his prognosis and wishes, pt is aware that his life expectancy is 2-6months without HD, I explained to Pt that with his current chuckie life expectancy might be ~1wk , pt stated he wants to live longer, considering pt functional status and disease prognosis , we agreed for trial of HD , and to reevaluate goal of care after 2-3 dialysis treatments will consult surgery for catheter placement hyperkalmeia due to CHUCKIE will give treatment HD tomorrow HAGMA will start bicarb drip will correct with Hyponatremia due to fluid overload fluid restriction metastatic colon Ca cont supportive care increased LFT due to liver mets Poor prognosis total time spent 50min Physical Examination - Vital Signs Temperature: 97.2 F Blood Pressure: 93/54 Pulse: 77 Respirations: 20 Pulse Ox (%): 92 - Studies Laboratory Data (last 24 hrs) 08/18/19 08:26: Sodium 130 L, Potassium 6.1 H*, BUN 57 H, Creatinine 4.84 H, Glucose 68 L, Total Bilirubin 2.0 H, AST 279 H D, ALT 49, Alkaline Phosphatase 310 H 08/18/19 08:26: WBC 20.0 H D, Hgb 10.9 L, Hct 34.0 L, Plt Count 245
[2019-08-18] MEDS: D5W 1,000 ML with NA BICARB 8.4% 150 MEQ IV SCH ×2 (11:00)
--- NOTE | 2019-08-18 11:11 | PN ---
Date of Progress Note: 08/18/2019 Patient seen and examined. Chart reviewed and case discussed with RN. Daughter was at the bedside y esterday. Treatment plan explained, all questions answered. Patient is still debating whether he wa nts to initiate dialysis if necessary. Complains that he has no appetite. Still feels abdominal dis tention. Medications: List reviewed. Physical Examination: Vital Signs: Temperature 97.3, heart rate 76, blood pressure 93/55, respirations 16, O2 97% on room air. General: Awake, alert, oriented x3, frail, cachectic, ill-appearing male. CV: S1, S2. Regular rate and rhythm. Peripheral pulses weak. Respiratory: Diminished breath sounds at the bases. No wheezing or stridor. Gastrointestinal: Abdomen is distended. Moderate ascites. Positive bowel sounds. Extremities: No clubbing or cyanosis. Patient has 3+ edema. Neuro: Nonfocal. Cranial nerves 2 through 12 intact grossly. Moves all 4 extremities. Speech is n ormal. Skin: Patient has some icterus. No rashes. Psych: Mood is depressed. Affect is flat. Insight and judgment are good. Laboratory Data: Sodium 130, potassium 6.1, chloride 101, CO2 14, BUN 57, creatinine 4.84, glucose 6 8, calcium 7, total bilirubin 2, AST 279, ALT 49, albumin 2. WBC 20, H and H 10.9 and 34, platelets 245, neutrophils 80%. Assessment And Plan: 69-year-old male with: 1.Acute hypotension, likely from third spacing. Moderate ascites. Patient has been started on mido drine by Nephrology. 2.Hyperkalemia. We will give hyperkalemia cocktail with calcium gluconate, insulin, dextrose, sodiu m bicarb, and Kayexalate. Likely due to worsening kidney function. We will recheck potassium 2 hour s post. 3.Acute kidney injury, likely hepatorenal syndrome or possibly due to diuretics, which are currently on hold. Creatinine worsening. May need to be started on dialysis, but not an ideal candidate due to his hypotension and other comorbidities. Patient is still deciding. 4.Invasive adenocarcinoma of the rectosigmoid colon with metastasis to the liver, inoperable, was on palliative chemotherapy, follows with Oncology, Dr. Beavers. Overall has a poor prognosis. 5.Pneumonia. We will adjust intravenous antibiotics. White blood cell count trending up. Follow u p on blood cultures. 6.Severe protein-calorie malnutrition. Continue with supplements. 7.Deep vein thrombosis prophylaxis. Sequential compression devices. Plan: As above. JERO Voice ID: [id number] Report ID: [id number]
[2019-08-18] MEDS ORDERED: CEFAZOLIN/SWI 1gm 1 GM/10 ML SYR IVP SCH (11:15)
--- NOTE | 2019-08-18 12:33 | CON ---
Date of Consultation: 08/18/2019 Reason For Consultation: Patient requires hemodialysis. History Of Present Illness: Patient is a 69-year-old gentleman with advanced metastatic colon cancer on palliative chemotherapy. He is awake, alert, and came in with acute kidney injury with elevated creatinine recently and now he has hyperkalemia currently being managed medically, but I was consulte d as the patient once is going to require hemodialysis and even though his prognosis is poor he would like to proceed with hemodialysis. The only thing he wants to do is talk with his prior to ced ing an official decision, but he told me he is 99.9% sure that he wants hemodialysis and Dr. Aguilar i recommended temporary catheter. Patient has no fevers or chills. Review of Systems: Otherwise unremarkable. Past Medical History: Metastatic colon cancer, hernia surgery. Past Surgical History: Port-A-Cath placement. Allergies: NONE. Habits: Patient does not smoke or drink. Family History: Noncontributory. Physical Examination: Vital Signs: Show a blood pressure borderline 93/54, he is afebrile, otherwise vitals are stable. General: He is awake, alert, emaciated looking. Head and Neck: Cranial nerves 2 through 12 grossly within normal limits. No neck masses. No JVD. Throat clear. Neck supple. Chest: Clear. Heart: S1, S2. Abdomen: Soft. Neurovascular: Intact. Neurologic: Nonfocal. Laboratory Data: White count is 20,000, platelets are 245. There is a slight left shift. INR is 1. 36. His potassium is 6.1 today, CO2 is 14, BUN is 57, creatinine is 4.84. All of those numbers are slightly worse today compared to yesterday. The patient also had a CT of the abdomen and pelvis ic h shows large volume ascites descending the abdomen, congestion and edema are seen in the mesenteric fat. Grossly abnormal liver with innumerable metastatic lesions throughout the liver. No emergent c hange to the liver and nodularity along the omentum. Assessment: 69-year-old gentleman with advanced colon cancer with acute kidney failure requiring tem porary dialysis. Recommendations: If the patient and family agreed to catheter, we will go ahead and try to put 1 in tomorrow. Risks, benefits, and alternatives were explained to the patient. He will talk to his and then decide and we will schedule it after that decision is finalized. Should he out of opt for hospice and no intervention, we will honor that request as well. /MODL Voice ID: [id number] Report ID: [id number]
[2019-08-18] MEDS ORDERED: CEFOTAXIME SODIUM 1 GM/VIAL IV SCH (17:00)
[2019-08-18] MEDS: ONDANSETRON 4 MG/2 ML VIAL IV PRN (18:26)
[2019-08-18] MEDS ORDERED: BACLOFEN 10 MG TAB PO ONE (20:18)
[2019-08-18 20:42] LABS: Potassium 5.3 mmol/L (3.5-5.1)
--- NOTE | 2019-08-18 22:03 | PN ---
Date of Progress Note: 08/18/2019 Subjective: Mr. Wade was resting comfortably when I saw him this evening. He is on oxygen by nasal cannula. He denies any pain or discomfort. He says his mouth is dry wound. Physical Examination: Vital Signs: Reveal that he has been afebrile. Temperature was 96.8 Fahrenheit at 4 p.m. today, pul se 68, respirations 20 per minute, blood pressure 98/51 around 4 p.m. His O2 saturation has been in the 87% to 90% range, on room air 94% on 2 L by nasal cannula. I's and O's reveal that he has been o liguric. For the past 24 hours, intake was 2481 mL, output was 230 mL in spite of IV albumin. Since 8 7 a.m. this morning, his output has only been 50 mL. General: Reveals an emaciated man. He appears pale and mildly icteric. Mouth is dry with no eviden ce of thrush. Lymph Node: Survey reveals no palpable lymphadenopathy in the neck, axilla, or groin. Chest: Reveals bilateral vesicular breath sounds, which are reduced at the bases posteriorly. Heart: Sounds reveal normal S1, S2. No gallops or murmurs. Abdomen: Distended with fluid with prominent veins. Liver and spleen is not palpable. Extremities: Show 1 to 2+ edema with no tenderness. Neurologic: He was very alert, oriented, and talkative with me as we discussed his end of life goals . Laboratory Data: From this morning reveals a white count of 20,000, his hemoglobin was 10.9 with a p latelet count of 245,000. Chemistries reveal a BUN of 57, creatinine of 4.84 for a GFR of 12. As of this morning at 8:30, potassium has been high at 6.1. His total bilirubin remains elevated at 2.0, AST was high on admission at 712, it has been declining was 279 this morning. His albumin was 2.0 g/ dL, in spite of albumin infusion yesterday. Assessment And Plan: 1.Acute renal failure, very likely related to compartment syndrome and hepatorenal syndrome. He has been on FOLFOX chemotherapy for the past year without evidence of renal toxicity and the regimen its elf is not nephrotoxic. He says he has agreed to dialysis with a goal of obtaining a few more weeks with his and young son. We will defer to renal for management of his renal failure and duration of dialysis. 2.Metastatic colon cancer. He has massive metastases to the liver resulting in liver failure as his cancer has progressed. We discussed that he is no longer a candidate for palliative chemotherapy gi xenia his decline in performance status and overall condition. He says he understands. 3.We had an extensive end of life discussion again today. He says he knows he is dying, but would l ghada to get a couple of weeks to spend with his and son, he says he would like to be able to talk to them. When we discussed whether he wanted resuscitation or not, he said he wanted quality time w ith his family and did not want to "linger." He did not want us to attempt resuscitation. A DNAR or germán was placed in the chart this evening. My hope is to be able to stabilize him and send him home with hospice for terminal comfort care and s ymptom management. He is agreeable to hospice. We will see how he does on dialysis and if his condition were to stabilize or improve, then would sug gest refer him to [facility] and discharged to home. I spent 40 minutes with the patient talking t o him about the above and discussing his goals and answering his questions at length. AP/MODL Voice ID: [id number] Report ID: [id number]
[2019-08-19 06:00] LABS: Absolute Lymphocytes (CBC) 2.5 K/uL (0.7-4.9); Basophils % 0.6 % (0-1.3); Lymphocytes % 14.5 % (15.3-44.8); MPV 7.2 fL (7.6-11.3); RBC Red Blood Cell Count 3.19 M/uL (4.33-5.43)
[2019-08-19 06:01] LABS: Protime INR 1.56
[2019-08-19] MEDS: D5W 1,000 ML with NA BICARB 8.4% 150 MEQ IV SCH ×4 (06:10→13:04)
[2019-08-19 06:34] LABS: ALT/SGPT 35 U/L (12-78); AST/SGOT 174 U/L (15-37); Albumin 1.7 g/dL (3.4-5.0); Alkaline Phosphatase 256 U/L (45-117); BUN Blood Urea Nitrogen 61 mg/dL (7-18); Bicarbonate 21 mmol/L (21-32); Bilirubin Total 1.7 mg/dL (0.2-1.0); Glucose Level 153 mg/dL (74-106); Potassium 5.2 mmol/L (3.5-5.1); Protein, Total 6.7 g/dL (6.4-8.2); Sodium Level 131 mmol/L (136-145)
[2019-08-19] MEDS: MIDODRINE HCL 5 MG TABLET PO SCH ×3 (08:48→19:08)
[2019-08-19] MEDS: AZITHROMYCIN IV 500 MG in NA CHLORIDE 0.9% 250 ML IVPB SCH (08:48)
[2019-08-19] MEDS: OCTREOTIDE ACETATE 100 MCG/ML IV SCH ×3 (08:51→19:08)
[2019-08-19] MEDS: MEGESTROL 400 MG/10 ML UCUP PO SCH ×2 (08:52→13:07)
[2019-08-19] MEDS ORDERED: NA CHLORIDE 0.9% 1,000 ML ONE (09:12)
[2019-08-19] MEDS ORDERED: HEPARIN 5000 UNIT/ML 1 ML VIAL ONE (09:24)
[2019-08-19] MEDS ORDERED: NS 0.9% VIAL 10 ML ONE (09:24)
[2019-08-19] MEDS ORDERED: LIDOCAINE 1% MPF 30 ML VIAL ONE (09:25)
[2019-08-19] MEDS ORDERED: NA CHLORIDE 0.9% 100 ML IV ONE (09:25)
[2019-08-19] MEDS ORDERED: CEFAZOLIN/SWI 1gm 1 GM/10 ML SYR ONE (09:29)
--- NOTE | 2019-08-19 10:23 | P.OP ---
Preoperative diagnosis: ARF Postoperative diagnosis: same Primary procedure: Left Tesio catheter Secondary procedure: Fluoroscopy Anesthesia: MAC Estimated blood loss: min Specimen: none Findings: Normal Anatomy Complications: None Transferred to: Recovery Room Condition: Good
--- NOTE | 2019-08-19 10:53 | RAD REPORT ---
EXAM DESCRIPTION: RAD - Fluoroscopy <1 Hour - 08/19/2019 10:19 am CLINICAL HISTORY: Device placement central venous catheter placement FINDINGS: A central venous catheter was placed into the superior vena cava. Four fluoroscopic spot i mages are submitted. The examination was performed by Dr. Bone Fluoroscopy time 0.2 minutes
--- NOTE | 2019-08-19 10:55 | RAD REPORT ---
EXAM DESCRIPTION: Reese Single View08/19/2019 10:46 am CLINICAL HISTORY: Device placement/central venous catheter placement COMPARISON: August 15 FINDINGS: The tip of a central venous catheter has its tip in superior vena cava. No pneumothorax. Bilateral pulmonary opacities could represent pulmonary edema or pneumonia
--- NOTE | 2019-08-19 11:14 | P.PN ---
Subjective Date of Service: 08/19/19 Primary Care Provider: Oncology-Dr. Beavers Subjective: Other (Patient resting in bed.) Physical Examination - Vital Signs Temperature: 97.7 F Blood Pressure: 91/47 Pulse: 62 Respirations: 16 Pulse Ox (%): 89 - Physical Exam General: Alert, Cooperative, Cachectic Neck: Supple Respiratory: Crackles/rales (To the bases bilateral) Cardiovascular: Normal pulses, Regular rate/rhythm Gastrointestinal: Normal bowel sounds, Ascites (Large ascites noted) Neurological: Normal speech, Normal strength at 5/5 x4 extr, Normal tone, Normal affect - Studies Laboratory Data (last 24 hrs) 08/19/19 05:45: PT 18.2 H, INR 1.56 08/19/19 05:45: Sodium 131 L, Potassium 5.2 H, BUN 61 H, Creatinine 5.27 H*, Glucose 153 H, Total Bilirubin 1.7 H, AST 174 H D, ALT 35, Alkaline Phosphatase 256 H 08/19/19 05:45: WBC 17.1 H D, Hgb 9.0 L, Hct 28.0 L D, Plt Count 218 08/18/19 20:02: Sodium 133 L, Potassium 5.3 H, BUN 61 H, Creatinine 5.27 H*, Glucose 106 08/18/19 15:57: Potassium 6.0 H* Medications List Reviewed: Yes Assessment & Plan Discharge Plan: Home Plan to discharge in: Greater than 2 days Physician Review Additional Text: Impression: Acute hypotension likely from 3rd spacing related to ascites/hepatorenal syndrome Acute renal failure with hyperkalemia,hepatorenal syndrome 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 Patient to have ultrasound-guided radiology assisted paracentesis. Will recommend to take no more than 2 L of fluid off. Will provide albumin IV afterwards. Will need to monitor his hemoglobin closely. Will send lab for further analysis. Oncology has spoken to the patient in detail. Advanced directives address. Patient is do not resuscitate. Patient desires temporary dialysis catheter placement is well due to acute renal failure. Will continue to monitor closely. Acute renal failure with hyperkalemia,hepatorenal syndrome: Patient desires temporary dialysis catheter placement for dialysis. This was addressed in detail with the patient. Patient wants to continue to remain alive but desires no aggressive measures. 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 Continue with above recommendation. Patient is do not resuscitate. Patient plans to continue with dialysis to be with family. Patient will likely require hospice in the near future. Pneumonia: Continue medication Severe protein malnutrition: Continue supplementation. Time Spent Managing Pts Care (In Minutes): 55
[2019-08-19] MEDS: CEFTRIAXONE/SWI 2gm 2 GM/20 ML SYR IVP SCH (13:02)
[2019-08-19 13:27] LABS: Body Fluid WBC 137 /mm^3
--- NOTE | 2019-08-19 13:35 | RAD REPORT ---
EXAM DESCRIPTION: US - Paracentesis Proc Guidance - 08/19/2019 11:51 am CLINICAL HISTORY: Liver disease with ascites FINDINGS: The risks, benefits and alternatives to the procedure were explained to the patient and in formed consent obtained. The skin and subcutaneous tissues were anesthetized with Lidocaine. Under sonographic guidance an 8 F rench catheter was placed into the right lower quadrant. 2 liters of yellow fluid removed and sent to the lab The patient experienced no immediate complication. IMPRESSION: Paracentesis
[2019-08-19 14:14] LABS: Appearance CLEAR (CLEAR); Color of fluid Yellow (COLORLESS)
[2019-08-19 14:39] LABS: Body Fluid Source PERITONEAL
--- NOTE | 2019-08-19 16:08 | OP ---
Date of Procedure: 08/19/2019 Surgeon: Stephen Bone MD Preoperative Diagnosis: Acute renal failure. Postoperative Diagnosis: Acute renal failure. Procedure: Placement of left IJ Tesio catheter interpretation, intraoperative fluoroscopy. Estimated Blood Loss: Minimal. Specimens: None. Findings: Normal anatomy. Anesthesia: MAC. Complications: None. The patient tolerated the procedure in stable condition and taken to Recovery in good general conditi on. Procedure In Detail: Patient was brought to the OR and placed in supine position. MAC anesthesia wa s began. Patient was prepped and draped in the usual sterile fashion. Lidocaine 1% was infiltrated locally. An 18-gauge needle was used to access the left subclavian vein. Guidewire was passed. Pos ition was confirmed with fluoroscopy. Counterincision was made. Tunneling device was used to tunnel the catheter between the 2 wounds and then Seldinger technique was used to dilate the vein and then tip of the catheter was placed in the SVC under fluoroscopy. Flushed with heparin and packed with he zac with good blood flow and then 3-0 chromic used for subcutaneous tissue and closed skin and 3-0 nylon used to secure the tube to the chest wall. Sterile dressing was applied. Patient was awakened and taken to Recovery in good general condition. A chest x-ray has been ordered. /MODL Voice ID: [id number] Report ID: [id number]
[2019-08-19] MEDS ORDERED: ALBUMIN HUMAN 25% 100 ML IV ONE (21:17)
--- NOTE | 2019-08-20 00:28 | PN ---
Date of Progress Note: 08/19/2019 Chief Complaint: Acute on chronic kidney injury. History Of Present Illness: Patient underwent catheter placement today and he will have dialysis to obtain metabolic clearance and ultrafiltration. He was found to have hyperkalemia, metabolic acidosi s. At this point, he will require dialysis. Patient has multiple medical problems including history of colon cancer he underwent chemotherapy on August 08, creatinine was 1.1. Subsequently was up to 1.5 and recently in the ER was 3.8. Sodium was 141. Patient had hyperkalemia, potassium w as 6.1. Review of Systems: Patient denies new complaints. Physical Examination: Lungs: Clear to auscultation bilaterally. Heart: S1, S2. Abdomen: Soft, benign. Extremities: Trace edema. Acute kidney injury secondary to multiple causes due to chemotherapy complicated by hepatorenal syndr ome. Abdominal CT did not show hydronephrosis. Patient may need paracenteses. Patient will continu e midodrine and octreotide and Lasix and Aldactone on hold because of hyperkalemia and acute kidney i njury. Dialysis will be done with ultrafiltration as tolerated. Monitor blood pressure closely duri ng dialysis. Adjust ultrafiltration goal accordingly. EB/MODL Voice ID: [id number] Report ID: [id number]
[2019-08-20] MEDS: D5W 1,000 ML with NA BICARB 8.4% 150 MEQ IV SCH ×2 (02:28)
[2019-08-20] MEDS: MEGESTROL 400 MG/10 ML UCUP PO SCH (07:53)
[2019-08-20] MEDS: AZITHROMYCIN IV 500 MG in NA CHLORIDE 0.9% 250 ML IVPB SCH (07:53)
[2019-08-20] MEDS: MIDODRINE HCL 5 MG TABLET PO SCH ×2 (07:53→11:26)
[2019-08-20] MEDS: CEFTRIAXONE/SWI 2gm 2 GM/20 ML SYR IVP SCH (07:54)
[2019-08-20] MEDS: OCTREOTIDE ACETATE 100 MCG/ML IV SCH ×2 (07:54→13:12)
[2019-08-20 08:45] VITALS: O2SAT 90
--- NOTE | 2019-08-20 10:10 | P.PN ---
Subjective Date of Service: 08/20/19 Primary Care Provider: Oncology-Dr. Beavers Subjective: Worsening Subjective A 69-year-old male with past medical history of colon cancer with liver metastasis on palliative chemotherapy , Ascitis with portal hypertension and esophageal varices pt admitted for Oncology office for hypotension and abnormal labs as per pt last chemotherpay was in july, his Cr in july was 1.1, on August 08 Cr was up to 1.5 , pt had distended tense abdomen , denied recent IV contrast NSAID intake in Er Cr 3.8, na 131 Pt started on trial of HD today pt still oliguric , confused today will do another dialysis treatment today Agree to consult hospice Pt with overall poor prognosis , pt started on trial pf dialysis , will do dialysis today while waiting for family decision ,will not recommend to cont HD , considering pt functional status and overall poor prognosis Physical exam general: AWAKE AND ALERT, NAD , thin Neck; Supple, No elevated JVD hear: RRR, normal S1,2 no murmur or rub Chest: CTAB, no rlaes or wheezes Abdomen: Distended , tense, NT Extremities trace edema CHUCKIE possibly due to compartment Syndrome +/- HRS II Abd CT no hydro cont midodrine and oterotide cont to hold hold lasix and aldactone pt with overall poor prognosis, I had a prolonged discussion with pt about his prognosis and wishes, pt is aware that his life expectancy is 2-6months without HD, pt started on trail of dialysis, and I agreed with pt before staring on HD to do 2-3 HD treatment only and hold HD after that , considering his functioanl status and overall poor prognosis, as dialysis will not alter the outcome hyperkalmeia due to CHUCKIE HD today HAGMA will stop bicarb drip will correct with HD Hyponatremia due to fluid overload fluid restriction metastatic colon Ca cont supportive care S/P 2 lietrs paracentecis increased LFT due to liver mets Poor prognosis total time spent 50min Physical Examination - Vital Signs Temperature: 97.0 F Blood Pressure: 111/55 Pulse: 67 Respirations: 12 Pulse Ox (%): 95 - Studies Microbiology Data (last 24 hrs): 08/17/19 14:02 Clean Catch Urine [place] Count - Final 08/17/19 14:02 Clean Catch Urine - Final No growth. Medications List Reviewed: Yes
--- NOTE | 2019-08-20 13:41 | P.DS ---
Admission Date: 08/16/19 Discharge Date: 08/20/19 Primary Care Provider: Oncology-Dr. Beavers Disposition: ROUTINE DISCHARGE Discharge Condition: SERIOUS Consultations: Oncology-Dr. Beavers Nephrology-Dr. Castillo Surgery-Dr. 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 Patient has inoperable cancer. Patient recently on palliative care with chemotherapy. Patient was seen at the office of oncology. Patient was admitted due to worsening renal function. Patient was also hypotensive. Hospital Course: Patient with invasive adenocarcinoma of the rectosigmoid colon with metastasis to the liver. Cancer is inoperable and previously on palliative chemotherapy. Patient was admitted due to hypotension likely from 3rd spacing/ascites/heptaorenal syndrome. Patient also had acute worsening renal failure requiring dialysis. The patient was evaluated by oncology and Nephrology. Both recommended hospice. Advanced directives address in detail. Patient did not want to be resuscitated. But patient and family desired a trial of dialysis. Surgery was consulted for temporary catheter placement. Patient was given dialysis without any significant change in his renal function. During the course of his stay the patient also had a radiology assisted paracentesis. Case discussed in detail with oncology and Nephrology. Due to his worsening status hospice was discussed with patient and family. At this time they have decided on hospice at home. Family has spoken to hospice to make arrangements. Patient will be discharged home with comfort measures only. Further orders to come from hospice. Vital Signs/Physical Exam: Temp Pulse Resp BP Pulse Ox 96.7 F L 62 12 91/50 L 94 08/20/19 12:00 08/20/19 12:00 08/20/19 12:00 08/20/19 12:08/20/19 12:00 General: Alert, Cachectic HEENT: Atraumatic Respiratory: Clear to auscultation bilaterally Cardiovascular: Normal pulses, Regular rate/rhythm Musculoskeletal: Other (Muscle wasting to the upper lower extremity and torso.) Laboratory Data at Discharge: WBC 17.1 K/uL (4.3-10.9) H D 08/19/19 05:45 Hgb 9.0 g/dL (13.6-17.9) L 08/19/19 05:45 Hct 28.0 % (39.6-49.0) L D 08/19/19 05:45 Plt Count 218 K/uL (152-406) 08/19/19 05:45 PT 18.2 SECONDS (9.5-12.5) H 08/19/19 05:45 INR 1.56 08/19/19 05:45 Sodium 131 mmol/L (136-145) L 08/19/19 05:45 Potassium 5.2 mmol/L (3.5-5.1) H 08/19/19 05:45 BUN 61 mg/dL (7-18) H 08/19/19 05:45 Creatinine 5.27 mg/dL (0.55-1.3) H* 08/19/19 05:45 Glucose 153 mg/dL (74-106) H 08/19/19 05:45 Phosphorus 6.4 mg/dL (2.5-4.9) H 08/16/19 12:44 Magnesium 1.8 mg/dL (1.8-2.4) 08/16/19 12:44 Total Bilirubin 1.7 mg/dL (0.2-1.0) H 08/19/19 05:45 AST 174 U/L (15-37) H D 08/19/19 05:45 ALT 35 U/L (12-78) 08/19/19 05:45 Alkaline Phosphatase 256 U/L (45-117) H 08/19/19 05:45 Triglycerides Cancelled 08/16/19 Unknown Cholesterol Cancelled 08/16/19 Unknown HDL Cholesterol Cancelled 08/16/19 Unknown Cholesterol/HDL Ratio Cancelled 08/16/19 Unknown Home Medications: Codeine/APAP [Tylenol #3*] 1 tab PO QID PRN 07/12/19 Ondansetron [Zofran (Odt)*] 1 tab PO PRN PRN 07/12/19 Furosemide 40 mg PO DAILY 08/16/19 Spironolactone [Aldactone*] 100 mg PO DAILY 08/16/19 Patient Discharge Instructions: Patient will go home with hospice. Patient will continue with comfort feeding and comfort measures. Further orders to come from hospice. Diet: Comfort feeding Activity: Bedrest Time spent managing pt's care (in minutes): 55
[2019-08-20] MEDS ORDERED: HEPARIN SOD 100 UNIT/ML FLUSH IV PRN (19:03)
[2019-08-20] MEDS ORDERED: HEPARIN 5000 UNIT/ML 1 ML VIAL SQ SCH (21:00)
[2019-08-21 00:24] VITALS: BP 125/60; TEMP 98.2
[2019-08-23 14:51] LABS: HBsAG Nonreactive (Nonreactive)
== END 2019-08-21 00:30 | disposition hospice, home (50) | DRG 673 ==
LOC: 2ND 11:46 → UNDODISIN 08-20 19:37
PROVIDERS: ADMIT Family Medicine; ATTEND Family Medicine
PROC: 02HV33Z Insertion of Infusion Device into Superior Vena Cava, Percutaneous Approach (ICD-10-PCS; 2019-08-19)
PROC: 0W9G3ZZ Drainage of Peritoneal Cavity, Percutaneous Approach (ICD-10-PCS; 2019-08-19)
PROC: 0JH60XZ Insertion of Tunneled Vascular Access Device into Chest Subcutaneous Tissue and Fascia, Open Approach (ICD-10-PCS; principal; 2019-08-19 09:15)
PROC: 5A1D70Z Performance of Urinary Filtration, Intermittent, Less than 6 Hours Per Day (ICD-10-PCS; 2019-08-20)
DX: N17.9 Acute kidney failure, unspecified (principal); E43 Unspecified severe protein-calorie malnutrition; J18.9 Pneumonia, unspecified organism; K76.7 Hepatorenal syndrome; C78.7 Secondary malignant neoplasm of liver and intrahepatic bile duct; R18.8 Other ascites; C19 Malignant neoplasm of rectosigmoid junction; Z68.1 Body mass index [BMI] 19.9 or less, adult; E87.1 Hypo-osmolality and hyponatremia; C78.5 Secondary malignant neoplasm of large intestine and rectum; E87.2 Acidosis; Z66 Do not resuscitate; R94.5 Abnormal results of liver function studies; I95.9 Hypotension, unspecified; D64.9 Anemia, unspecified; K27.9 Peptic ulcer, site unspecified, unspecified as acute or chronic, without hemorrhage or perforation; E80.6 Other disorders of bilirubin metabolism; K21.0 Gastro-esophageal reflux disease with esophagitis; E87.5 Hyperkalemia; Z85.038 Personal history of other malignant neoplasm of large intestine; Z20.828 Contact with and (suspected) exposure to other viral communicable diseases
CPT/HCPCS: 36415; 49083; 71045; 71046; 74176; 76000; 80048; 80053; 81001; 82570; 82947; 83615; 83735; 84100; 84132; 84145; 84156; 84300; 85025; 85610; 86317; 86704; 86705; 86706; 87040; 87070; 87086; 87088; 87340; 88108; 88305; 89050; 93005; 94760; 99215; C1752; J0456; J0610; J0690; J0696; J0744; J1644; J2270; J2354; J2405; J7030; J7040; P9047; U0002